=== PATIENT | female | born 1995 | race Caucasian/White ===

== ENCOUNTER 2020-11-10 11:00 | Outpatient (CLI) | payer OTHER ==
[2020-11-11 10:46] LABS: CREATININE,URINE 138.3 mg/dL; PROTEIN/CREATININE RATIO,URINE 0.1 (<=0.2)
== END 2020-11-10 23:59 | disposition home or self-care (01) ==
LOC: LAB.R 11:00
PROVIDERS: ATTEND Obstetrics & Gynecology
DX: O09.90 Supervision of high risk pregnancy, unspecified, unspecified trimester (principal)
CPT/HCPCS: 82570; 84156

== ENCOUNTER 2020-11-18 16:00 | Outpatient (CLI) | payer OTHER ==
[2020-11-19 13:09] LABS: BILIRUBIN,URINE NEGATIVE (NEGATIVE); GLUCOSE, URINE (UA) NEGATIVE (NEGATIVE); KETONES,URINE (UA) NEGATIVE (NEGATIVE); LEUKOCYTE ESTERASE, URINE NEGATIVE (NEGATIVE); NITRITE,URINE NEGATIVE (NEGATIVE); OCCULT BLOOD,URINE NEGATIVE (NEGATIVE); PROTEIN,URINE NEGATIVE (NEGATIVE); UROBILINOGEN,URINE 0.2 (NORMAL) E.U./dL (NORMAL)
[2020-11-19 13:20] LABS: CLARITY,URINE CLOUDY (CLEAR)
[2020-11-19 13:21] LABS: AMORPHOUS SEDIMENT,UR Moderate /LPF; BACTERIA,URINE Moderate /HPF (None Seen); RBC,URINE None Seen /HPF (0-5); SQUAMOUS EPITHELIAL CELL,UR FEW Squamous (<= Few)
== END 2020-11-18 23:59 | disposition home or self-care (01) ==
LOC: LAB.R 16:00
PROVIDERS: ATTEND Nurse Practitioner Obstetrics & Gynecology
DX: R30.0 Dysuria (principal)
CPT/HCPCS: 81001; 87086

== ENCOUNTER 2020-12-20 17:53 | Outpatient (CLI) | payer OTHER ==
--- NOTE | 2020-12-21 08:38 | Ultrasound Report ---
PROCEDURE: OB F/U or Repeat INDICATIONS: SUPERVISION OF HIGH RISK OUTSIDE/PRIOR DATING DATA: First dating scan (date and location): 12/20/2020. Estimated date of delivery (LOAN) from first dating scan: 02/19/2021. TECHNIQUE: Real-time scanning was performed of the fetus, with image documentation and biometric measurements. Endovaginal scanning: Was not performed COMPARISON: None. FINDINGS: General: A single living intrauterine gestation is present. Presentation: Cephalic Placenta: Placental position is posterior, without previa. Amniotic fluid index: 11.9 cm, normal for gestational age. heart rate: 152 beats per minute. Maternal cervical canal: Cervix was not well visualized. biometrics: Biparietal diameter: 8.1 cm Head circumference: 28.9 cm Abdominal circumference: 25.8 cm Femur length: 6.0 cm Estimated gestational age from initial scan: not applicable. Composite gestational age from present scan: 31 weeks 2 days Estimated weight and percentile: 1618 g, 45th percentile Measurement variability in biometric dating: +/- 10 days from 12-20 weeks gestation, +/- 2 weeks from 20-30 weeks gestation, +/- 3 weeks at 30 weeks gestation or more. Other: Not applicable. IMPRESSION: Single live intrauterine gestation with average ultrasound age of 31 weeks 2 days. PENNY and weight are within normal limits. Reviewed by: Charles Mao MD on 12/21/2020 8:37 AM PST Approved by: Charles Mao MD on 12/21/2020 8:37 AM PST Station ID: [id number]
== END 2020-12-20 17:54 | disposition home or self-care (01) ==
LOC: DI 17:53
PROVIDERS: ATTEND Obstetrics & Gynecology
DX: O35.8XX1 Maternal care for other (suspected) fetal abnormality and damage, fetus 1 (principal); O09.93 Supervision of high risk pregnancy, unspecified, third trimester; Z3A.31 31 weeks gestation of pregnancy

== ENCOUNTER 2020-12-24 11:00 | Outpatient (CLI) | payer SELFPAY ==
[2020-12-24 16:55] LABS: CREATININE,URINE 197.7 mg/dL; PROTEIN/CREATININE RATIO,URINE 0.1 (<=0.2)
== END 2020-12-24 23:59 | disposition home or self-care (01) ==
LOC: LAB.R 11:00
PROVIDERS: ATTEND Obstetrics & Gynecology
DX: O09.90 Supervision of high risk pregnancy, unspecified, unspecified trimester (principal); O16.9 Unspecified maternal hypertension, unspecified trimester
CPT/HCPCS: 82570; 84156

== ENCOUNTER 2020-12-24 11:34 | Outpatient (CLI) | payer SELFPAY ==
[2020-12-24 12:05] LABS: HGB - HEMOGLOBIN 12.9 g/dL (12.0-16.0); MEAN CORPUSCULAR HEMOGLOBIN 30.6 pg (27.0-31.0); MEAN CORPUSCULAR HGB CONC 34.8 g/dL (32.0-36.0); MEAN CORPUSCULAR VOLUME 88.1 fL (81.0-99.0); MEAN PLATELET VOLUME 10.8 fL (7.9-10.8); RED BLOOD COUNT 4.21 10^6/uL (4.20-5.40); RED CELL DISTRIBUTION WIDTH 14.2 % (12.0-15.0); WHITE BLOOD COUNT 10.1 x10^3/uL (4.8-10.8)
[2020-12-24 12:18] LABS: ALBUMIN 3.3 g/dL (3.2-5.5); ALBUMIN/GLOBULIN RATIO 0.9 (1.0-2.2); ALKALINE PHOSPHATASE 83 IU/L (42-121); ALT ALANINE AMINOTRANSFERASE < 10 IU/L (10-60); AST ASPARTATE AMINOTRANSFERASE 11 IU/L (10-42); BILIRUBIN,TOTAL 0.5 mg/dL (0.2-1.0); BUN - BLOOD UREA NITROGEN 7 mg/dL (6-20); CARBON DIOXIDE - CO2 21 mmol/L (21-32); CHLORIDE 102 mmol/L (101-111); CREATININE 0.6 mg/dL (0.4-1.0); GLUCOSE 99 mg/dL (70-100); TOTAL PROTEIN 6.8 g/dL (6.7-8.2)
== END 2020-12-24 11:35 | disposition home or self-care (01) ==
LOC: LAB 11:34
PROVIDERS: ATTEND Obstetrics & Gynecology
DX: O16.9 Unspecified maternal hypertension, unspecified trimester (principal); O09.90 Supervision of high risk pregnancy, unspecified, unspecified trimester
CPT/HCPCS: 36415; 80053; 85027

== ENCOUNTER 2020-12-29 08:02 | Outpatient (CLI) | payer SELFPAY ==
[2020-12-29 08:32] LABS: GTT GLUCOSE,FASTING 93 mg/dL (70-100)
== END 2020-12-29 08:03 | disposition home or self-care (01) ==
LOC: LAB 08:02
PROVIDERS: ATTEND Obstetrics & Gynecology
DX: O99.810 Abnormal glucose complicating pregnancy (principal)
CPT/HCPCS: 36415; 82951; 82952

== ENCOUNTER 2021-01-04 07:49 | Outpatient (CLI) | payer OTHER ==
[2021-01-04 08:18] VITALS: BP 138/84
--- NOTE | 2021-01-04 16:54 | PROCEDURE REPORT ---
- HPI Diagnosis/Indication for NST: Other (Chronic hypertension) Current EDU 02/25/21 Gestation 32 Weeks and 4 Days 2 Para 0 Vital Signs Temperature 99.3 F 01/04/21 08:15 Heart Rate 104 H 01/04/21 08:15 Respiratory Rate 16 01/04/21 08:15 Blood Pressure 138/84 H 01/04/21 08:15 O2 Saturation 100 01/04/21 08:15 Temperature 99.3 F 01/04/21 08:15 Heart Rate 104 H 01/04/21 08:15 Respiratory Rate 16 01/04/21 08:15 Blood Pressure 138/84 H 01/04/21 08:15 O2 Saturation 100 01/04/21 08:15 - NST Procedure NST Procedure Start Date 01/04/21 Start Time 08:12 Stop Time 08:45 Vibroacoustic Stimulation Used No Patient States Movement Yes - Results and Plan Findings/Impression: Baseline: BPM 150 Variability: Moderate Accelerations: Present Decelerations: Absent Trends in FHR over time: no changes [place] contractions in 10 minutes: 0 Impression: reactive Category 1 NST
== END 2021-01-04 08:50 | disposition home or self-care (01) ==
LOC: WFO 07:49 → FBP 08:02 → WFO 08:50
PROVIDERS: ATTEND Obstetrics & Gynecology
DX: O10.913 Unspecified pre-existing hypertension complicating pregnancy, third trimester (principal); Z3A.32 32 weeks gestation of pregnancy
CPT/HCPCS: 59025

== ENCOUNTER 2021-01-08 18:39 | Outpatient (CLI) | payer OTHER ==
[2021-01-08 18:54] VITALS: BP 131/78
--- NOTE | 2021-01-09 12:09 | PROCEDURE REPORT ---
- HPI Diagnosis/Indication for NST: Pre- Hypertension Current EDU 02/25/21 Gestation 33 Weeks and 1 Days 2 Para 0 Vital Signs Temperature 98.4 F 01/08/21 18:51 Heart Rate 103 H 01/08/21 18:51 Respiratory Rate 17 01/08/21 18:51 Blood Pressure 131/78 H 01/08/21 18:51 O2 Saturation 100 01/08/21 18:51 Temperature 98.4 F 01/08/21 18:51 Heart Rate 103 H 01/08/21 18:51 Respiratory Rate 17 01/08/21 18:51 Blood Pressure 131/78 H 01/08/21 18:51 O2 Saturation 100 01/08/21 18:51 - NST Procedure NST Procedure Start Date 01/08/21 Start Time 18:49 Stop Time 19:20 Vibroacoustic Stimulation Used No Patient States Movement Yes - Results and Plan Findings/Impression: Baseline: BPM 135 Variability: Moderate Accelerations: Present Decelerations: Absent Trends in FHR over time: no changes [place] contractions in 10 minutes: Impression: reactive Category 1 NST
== END 2021-01-08 19:25 | disposition home or self-care (01) ==
LOC: WFO 18:39 → FBP 18:40 → WFO 19:25
PROVIDERS: ATTEND Obstetrics & Gynecology
DX: O09.90 Supervision of high risk pregnancy, unspecified, unspecified trimester (principal); O10.913 Unspecified pre-existing hypertension complicating pregnancy, third trimester; Z3A.33 33 weeks gestation of pregnancy
CPT/HCPCS: 59025

== ENCOUNTER 2021-01-08 19:42 | Outpatient (CLI) | payer OTHER ==
--- NOTE | 2021-01-08 22:12 | Ultrasound Report ---
PROCEDURE: OB Limited INDICATIONS: HIGH RISK PREG, HTN, WEEKLY PENNY OUTSIDE/PRIOR DATING DATA: Last menstrual period (LMP): 05/21/2020 according to prior ultrasound [place] LMP-based estimated date of delivery (LOAN): 02/25/2021. First dating scan (date and location): 12/20/2020. Estimated date of delivery (LOAN) from first dating scan: 02/25/2021. LOAN given by provider is TECHNIQUE: Real-time scanning was performed of the fetus, with image documentation. COMPARISON: OB ultrasound 12/20/2020, 10/15/2020, 10/12/2020 FINDINGS: A single living intrauterine gestation is present. Presentation: Vertex Placenta: Placental position is posterior, without previa. Amniotic fluid index: 8.4 cm, 5th percentile for gestational age. Largest pocket 3.25 cm. This is co mpared to a PENNY of 11.9 cm and largest pocket of 4.2 cm on 12/20/2020 heart rate: 147 beats per minutes. Maternal cervical canal: Not well seen Estimated gestational age from initial scan: 33 weeks 1 day. IMPRESSION: 1. Single live intrauterine . It is noted that LOAN has been changed to 02/25/2021 as noted by the ordering provider. 2. PENNY is now measured at the 5th percentile, measuring 8.4 cm compared to 11.9 cm on prior exam. Reviewed by: Vicky Culver MD on 01/08/2021 10:11 PM PST Approved by: Vicky Culver MD on 01/08/2021 10:11 PM PST Station ID: [id number]
== END 2021-01-08 19:43 | disposition home or self-care (01) ==
LOC: DI 19:42
PROVIDERS: ATTEND Obstetrics & Gynecology
DX: O09.90 Supervision of high risk pregnancy, unspecified, unspecified trimester (principal); O16.9 Unspecified maternal hypertension, unspecified trimester

== ENCOUNTER 2021-01-11 09:48 | Outpatient (CLI) | payer OTHER ==
[2021-01-11 10:00] VITALS: BP 139/83
--- NOTE | 2021-01-11 18:29 | PROCEDURE REPORT ---
- HPI Diagnosis/Indication for NST: Pre- Hypertension Current EDU 02/25/21 Gestation 33 Weeks and 4 Days 2 Para 0 Vital Signs Temperature 98.2 F 01/11/21 09:59 Heart Rate 103 H 01/11/21 09:59 Respiratory Rate 18 01/11/21 09:59 Blood Pressure 139/83 H 01/11/21 09:59 O2 Saturation 100 01/11/21 09:59 Temperature 98.2 F 01/11/21 09:59 Heart Rate 103 H 01/11/21 09:59 Respiratory Rate 18 01/11/21 09:59 Blood Pressure 139/83 H 01/11/21 09:59 O2 Saturation 100 01/11/21 09:59 - NST Procedure NST Procedure Start Date 01/11/21 Start Time 09:54 Stop Time 10:14 Vibroacoustic Stimulation Used No Patient States Movement Yes - Results and Plan Findings/Impression: Baseline: BPM 140 Variability: Moderate Accelerations: Present Decelerations: Absent Trends in FHR over time: no changes [place] contractions in 10 minutes: Impression: reactive Category 1 NST
== END 2021-01-11 10:20 | disposition home or self-care (01) ==
LOC: WFO 09:48 → FBP 09:50 → WFO 10:20
PROVIDERS: ATTEND Obstetrics & Gynecology
DX: O10.913 Unspecified pre-existing hypertension complicating pregnancy, third trimester (principal); Z3A.33 33 weeks gestation of pregnancy
CPT/HCPCS: 59025

== ENCOUNTER 2021-01-14 09:47 | Outpatient (CLI) | payer OTHER ==
[2021-01-14 09:56] VITALS: BP 132/90
--- NOTE | 2021-01-15 21:23 | PROCEDURE REPORT ---
- HPI Diagnosis/Indication for NST: Pre- Hypertension Current EDU 02/25/21 Gestation 34 Weeks and 0 Days 2 Para 0 Vital Signs Temperature 98.2 F 01/14/21 09:54 Heart Rate 124 H 01/14/21 09:54 Respiratory Rate 20 01/14/21 09:54 Blood Pressure 132/90 H 01/14/21 09:54 O2 Saturation 99 01/14/21 09:54 Temperature 98.2 F 01/14/21 09:54 Heart Rate 124 H 01/14/21 09:54 Respiratory Rate 20 01/14/21 09:54 Blood Pressure 132/90 H 01/14/21 09:54 O2 Saturation 99 01/14/21 09:54 - NST Procedure NST Procedure Start Date 01/14/21 Start Time 09:51 Stop Time 10:20 Vibroacoustic Stimulation Used No Patient States Movement Yes EFM 145 mod mode 15x15 accels no decels TOCO: quiet - Results and Plan Findings/Impression: 25 yo at 34+0 wga with pregnanct affected by CHTN here for NST Cat I tracing Cont with twice weekly NST and weekly PENNY
== END 2021-01-14 10:30 | disposition home or self-care (01) ==
LOC: WFO 09:47 → FBP 09:49 → WFO 10:30
PROVIDERS: ATTEND Obstetrics & Gynecology
DX: O09.90 Supervision of high risk pregnancy, unspecified, unspecified trimester (principal); O10.913 Unspecified pre-existing hypertension complicating pregnancy, third trimester; Z3A.34 34 weeks gestation of pregnancy
CPT/HCPCS: 59025

== ENCOUNTER 2021-01-14 11:49 | Outpatient (CLI) | payer OTHER ==
--- NOTE | 2021-01-14 13:09 | Ultrasound Report ---
PROCEDURE: OB Limited INDICATIONS: HIGH RISK , HTN OUTSIDE/PRIOR DATING DATA: Last menstrual period (LMP): 05/21/2020 based on radiology report of 10/12/2020 from [place] LMP-based estimated date of delivery (LOAN): 02/25/2021. First dating scan (date and location): 10/12/2020 [facility]. Estimated date of delivery (LOAN) from first dating scan: 02/25/2021. It is noted that the ordering pro vider has established the LOAN to be 02/25/2021.. TECHNIQUE: Real-time scanning was performed of the fetus, with image documentation. COMPARISON: OB ultrasound 10/12/2020, 12/20/2020, 01/08/2021 FINDINGS: A single living intrauterine gestation is present. Presentation: Vertex Placenta: Placental position is posterior, without previa. Amniotic fluid index: 9.6 cm, 11th percentile for gestational age. Largest pocket 3.4 cm. heart rate: 141 beats per minutes. Maternal cervical canal: 3.6 cm long; normal length is 2.5 cm or more. IMPRESSION: 1. PENNY measures 9.6 cm, corresponding to the 11th percentile. Gestational age is measured at 34 weeks 0 days. Reviewed by: Vicky Culver MD on 01/14/2021 1:08 PM PDT Approved by: Vicky Culver MD on 01/14/2021 1:08 PM PDT Station ID: [id number]
== END 2021-01-14 11:50 | disposition home or self-care (01) ==
LOC: DI 11:49
PROVIDERS: ATTEND Obstetrics & Gynecology
DX: O09.90 Supervision of high risk pregnancy, unspecified, unspecified trimester (principal); O16.9 Unspecified maternal hypertension, unspecified trimester; Z3A.34 34 weeks gestation of pregnancy

== ENCOUNTER 2021-01-19 11:23 | Outpatient (CLI) | payer OTHER ==
[2021-01-19 12:05] VITALS: BP 125/79
--- NOTE | 2021-01-19 17:27 | PROCEDURE REPORT ---
- HPI Diagnosis/Indication for NST: Pre- Hypertension Current EDU 02/25/21 Gestation 34 Weeks and 5 Days 2 Para 0 Vital Signs Temperature 99.0 F 01/19/21 11:35 Heart Rate 110 H 01/19/21 11:35 Respiratory Rate 18 01/19/21 11:35 Blood Pressure 141/87 H 01/19/21 11:35 Temperature 99.0 F 01/19/21 11:35 Heart Rate 110 H 01/19/21 11:35 Respiratory Rate 18 01/19/21 11:35 Blood Pressure 125/79 01/19/21 11:45 O2 Saturation - NST Procedure NST Procedure Start Date 01/19/21 Start Time 11:35 Stop Time 12:07 Vibroacoustic Stimulation Used No Patient States Movement Yes EFM 140 mod mode 15x15 accels no decels TOCO: quiet - Results and Plan Findings/Impression: 25 yo at 34+5 wga with affected by CHTN here for NST Cat I tracing Cont with twice weekly NST and weekly PENNY
== END 2021-01-19 12:20 | disposition home or self-care (01) ==
LOC: WFO 11:23 → FBP 11:28 → WFO 12:20
PROVIDERS: ATTEND Obstetrics & Gynecology
DX: O10.913 Unspecified pre-existing hypertension complicating pregnancy, third trimester (principal); Z3A.34 34 weeks gestation of pregnancy
CPT/HCPCS: 59025

== ENCOUNTER 2021-01-22 08:49 | Outpatient (CLI) | payer OTHER ==
--- NOTE | 2021-01-22 17:12 | Ultrasound Report ---
PROCEDURE: OB Limited INDICATIONS: HIGH RISK , HTN OUTSIDE/PRIOR DATING DATA: Last menstrual period (LMP): 05/21/2020 based on radiology report of 10/12/2020 from [place]. LMP-based estimated date of delivery (LOAN): 02/25/2021 First dating scan (date and location): 10/12/2020 [place] Estimated date of delivery (LOAN) from first dating scan: 02/19/2021. It is noted that current exam ul rasound generated data is based on ultrasound LOAN of 02/25/2021 as assigned by ordering provider.. TECHNIQUE: Real-time scanning was performed of the fetus, with image documentation. COMPARISON: OB ultrasound 01/14/2021, 01/08/2021 FINDINGS: A single living intrauterine gestation is present. Presentation: Prior to Placenta: Placental position is posterior fundal, without previa. Amniotic fluid index: 7.4 cm, 3.8% for gestational age. Largest pocket 3.4 cm heart rate: 153 beats per minutes. Maternal cervical canal: 3.6 cm long; normal length is 2.5 cm or more. Estimated gestational age from provider assigned LOAN of 02/25/2021: 35 weeks 1 day. IMPRESSION: 1. Single live intrauterine . 2. PENNY measures 7.4 cm corresponding to 3.8 percentile. This has decreased compared to prior exam. Ho wever, it is noted that largest pocket remains unchanged in size measuring 3.4 cm. Reviewed by: Vicky Culver MD on 01/22/2021 5:11 PM PDT Approved by: Vicky Culver MD on 01/22/2021 5:11 PM PDT Station ID: [id number]
== END 2021-01-22 08:50 | disposition home or self-care (01) ==
LOC: DI 08:49
PROVIDERS: ATTEND Obstetrics & Gynecology
DX: O09.90 Supervision of high risk pregnancy, unspecified, unspecified trimester (principal); O16.3 Unspecified maternal hypertension, third trimester; Z3A.35 35 weeks gestation of pregnancy

== ENCOUNTER 2021-01-22 09:25 | Outpatient (CLI) | payer OTHER ==
[2021-01-22 09:42] VITALS: BP 126/75
--- NOTE | 2021-01-27 12:09 | PROCEDURE REPORT ---
- HPI Diagnosis/Indication for NST: Pre- Hypertension Current EDU 02/25/21 Gestation 35 Weeks and 1 Days 2 Para 0 Vital Signs Temperature 37.1 C 01/22/21 09:40 Heart Rate 99 01/22/21 09:40 Respiratory Rate 16 01/22/21 09:40 Blood Pressure 126/75 01/22/21 09:40 O2 Saturation 100 01/22/21 09:40 Temperature 37.1 C 01/22/21 09:40 Heart Rate 99 01/22/21 09:40 Respiratory Rate 16 01/22/21 09:40 Blood Pressure 126/75 01/22/21 09:40 O2 Saturation 100 01/22/21 09:40 - NST Procedure NST Procedure Start Date 01/22/21 Start Time 09:34 Stop Time 10:00 Vibroacoustic Stimulation Used No Patient States Movement Yes - Results and Plan Findings/Impression: reactive NST BPP 8/8 PENNY 3+ MAX POCKET Plan: CONTINUE nst WITH BPP
--- NOTE | 2021-01-27 12:38 | PREOP HISTORY & PHYSICAL ---
DATE OF SERVICE: 01/22/2021 Physician: Tigre Edwards MD IDENTIFICATION: Patient is a 25-year-old. She is 2, para 0, AB1. She is currently 35 weeks EGA. CHIEF COMPLAINT: Chronic hypertension. HISTORY OF PRESENT ILLNESS: Patient noted to have chronic hypertension at her early visits and, for this reason, she is being followed with twice weekly NSTs, as well as AFIs. Over the weekend, she had difficulty with some AFIs, which were in the 3-4 range, so she presents today for repeat NST, as well as PENNY. Her NST is reactive, however, and her PENNY was noted to be 5.1. She notes good motion at this time. PAST MEDICAL HISTORY: Positive for hypertension, as well as abnormal Pap smear. PAST SURGICAL HISTORY: [place] teeth. ALLERGIES: None known. CURRENT MEDICATIONS: Low-dose aspirin, as well as vitamins. FAMILY HISTORY: Positive for hypertension. SOCIAL HISTORY: The patient is to active [employer]. PHYSICAL EXAM GENERAL: Well-developed, well-nourished, white female, in no acute distress at this time,. HEENT: Pupils equal, round. Extraocular muscles are intact. Thyroid was not palpably enlarged. HEART: Regular rate and rhythm without murmurs. LUNGS: Lung eaton are clear without rales or wheezes. ABDOMEN: Gravid, nontender. Roughly 35 cm. She was noted to have initial blood pressures in 140s/90s; however, blood pressure did go up to 160/90s. This appeared to regress slightly to 150/90s. She had an NST, which was reactive. She had an PENNY, which was roughly 5.2. Her PIH labs did not show evidence of any proteinuria. IMPRESSION: A 25-year-old nulliparous woman at 35 weeks 5 days with chronic hypertension. PLAN: We will start her on labetalol 100 mg p.o. b.i.d., administer betamethasone 12 mg IM. Patient will also continue with her outpatient NSTs. TD: 01/27/2021 11:55 jaymie GARCIA
== END 2021-01-22 10:15 | disposition home or self-care (01) ==
LOC: WFO 09:25 → FBP 09:26 → WFO 10:15
PROVIDERS: ATTEND Obstetrics & Gynecology
DX: O10.913 Unspecified pre-existing hypertension complicating pregnancy, third trimester (principal); Z3A.35 35 weeks gestation of pregnancy; Z79.82 Long term (current) use of aspirin; Z82.49 Family history of ischemic heart disease and other diseases of the circulatory system
CPT/HCPCS: 59025

== ENCOUNTER 2021-01-23 08:53 | Outpatient (CLI) | payer OTHER ==
[2021-01-23 09:09] VITALS: BP 128/79
--- NOTE | 2021-01-23 10:19 | PROCEDURE REPORT ---
- HPI Diagnosis/Indication for NST: Gestational Hypertension Current EDU 02/25/21 Gestation 35 Weeks and 2 Days 2 Para 0 Vital Signs Temperature 36.5 C 01/23/21 09:06 Heart Rate 108 H 01/23/21 09:06 Respiratory Rate 16 01/23/21 09:06 Blood Pressure 128/79 01/23/21 09:06 O2 Saturation 98 01/23/21 09:06 Temperature 36.5 C 01/23/21 09:06 Heart Rate 108 H 01/23/21 09:06 Respiratory Rate 16 01/23/21 09:06 Blood Pressure 128/79 01/23/21 09:06 O2 Saturation 98 01/23/21 09:06 - NST Procedure NST Procedure Start Date 01/23/21 Start Time 09:10 Stop Time 09:30 Vibroacoustic Stimulation Used No Patient States Movement Yes - Results and Plan Findings/Impression: reactive NST. yesterday pt had a BPP with PENNY of 7. Repeat PENNY today is 16. Plan: continue antinatal testing.
== END 2021-01-23 09:50 | disposition home or self-care (01) ==
LOC: WFO 08:53 → FBP 08:56 → WFO 09:50
PROVIDERS: ATTEND Obstetrics & Gynecology
DX: O10.913 Unspecified pre-existing hypertension complicating pregnancy, third trimester (principal); Z3A.35 35 weeks gestation of pregnancy
CPT/HCPCS: 59025

== ENCOUNTER 2021-01-25 07:24 | Outpatient (CLI) | payer OTHER ==
[2021-01-25 07:40] VITALS: BP 132/80
[2021-01-25] MEDS ORDERED: LACTATED RINGERS 1,000 ML IV ONE (07:59)
--- NOTE | 2021-01-27 16:26 | PROCEDURE REPORT ---
- HPI Diagnosis/Indication for NST: Pre- Hypertension Current EDU 02/25/21 Gestation 35 Weeks and 4 Days 2 Para 0 Vital Signs Temperature 98.6 F 01/25/21 07:37 Heart Rate 111 H 01/25/21 07:37 Respiratory Rate 18 01/25/21 07:37 Blood Pressure 132/80 H 01/25/21 07:37 O2 Saturation 99 01/25/21 07:37 Temperature 98.6 F 01/25/21 07:37 Heart Rate 111 H 01/25/21 07:37 Respiratory Rate 18 01/25/21 07:37 Blood Pressure 132/80 H 01/25/21 07:37 O2 Saturation 99 01/25/21 07:37 - NST Procedure NST Procedure Start Date 01/25/21 Start Time 07:35 Stop Time 08:30 Vibroacoustic Stimulation Used Yes Patient States Movement Yes EFM 140 mod vr 15x15 accels no decels TOCO: quiet - Results and Plan Findings/Impression: Patient is a 25 yo at 34+5 with CHTN in Cat I tracing PENNY borderline at 5.6 and MVP 4.2 Gave 1L fluid bolus with plan to repeat PENNY and NST tomorrow
== END 2021-01-25 09:35 | disposition home or self-care (01) ==
LOC: WFO 07:24 → FBP 07:26 → WFO 09:35
PROVIDERS: ATTEND Obstetrics & Gynecology
DX: O10.913 Unspecified pre-existing hypertension complicating pregnancy, third trimester (principal); O41.03X0 Oligohydramnios, third trimester, not applicable or unspecified; Z3A.35 35 weeks gestation of pregnancy
CPT/HCPCS: 59025; 76815; 96360; J7120

== ENCOUNTER 2021-01-26 09:46 | Outpatient (CLI) | payer OTHER ==
--- NOTE | 2021-01-26 17:20 | Ultrasound Report ---
PROCEDURE: OB Limited INDICATIONS: SUPERVISION HIGH RISK , OLIGOHYDRAMNIOS OUTSIDE/PRIOR DATING DATA: Last menstrual period (LMP): Unknown. LMP-based estimated date of delivery (LOAN): Unknown. First dating scan (date and location): 12/20/2020. Estimated date of delivery (LOAN) from first dating scan: 02/19/2021. (02/25/2021 per Provider). TECHNIQUE: Real-time scanning was performed of the fetus, with image documentation. COMPARISON: OB ultrasound 01/25/2021. FINDINGS: A single living intrauterine gestation is present. Presentation: Vertex Placenta: Placental position is posterior fundal, without previa. Amniotic fluid index: 5.4 cm, 1.1 percentile. Largest pocket 2.6 cm. heart rate: 158 beats per minutes. Maternal cervical canal: Not well seen. Estimated gestational age from initial scan: 35 weeks 5 days. IMPRESSION: 1. [place] living intrauterine at 35 weeks 5 days based on prior dating. 2. Normal placenta. Oligohydramnios. PENNY 5.4 cm. Largest pocket 2.6 cm. Reviewed by: Yosi Veronica MD on 01/26/2021 5:19 PM PDT Approved by: Yosi Veronica MD on 01/26/2021 5:19 PM PDT Station ID: [id number]
== END 2021-01-26 09:47 | disposition home or self-care (01) ==
LOC: DI 09:46
PROVIDERS: ATTEND Obstetrics & Gynecology
DX: O09.93 Supervision of high risk pregnancy, unspecified, third trimester (principal); O41.03X0 Oligohydramnios, third trimester, not applicable or unspecified

== ENCOUNTER 2021-01-26 10:44 | Outpatient (CLI) | payer OTHER ==
[2021-01-26 12:59] LABS: BASOPHILS % (AUTO) 0.2 %; EOSINOPHILS % (AUTO) 0.4 %; HCT - HEMATOCRIT 37.5 % (37.0-47.0); HGB - HEMOGLOBIN 12.7 g/dL (12.0-16.0); LYMPHOCYTES # (AUTO) 1.8 10^3/uL (1.5-3.5); LYMPHOCYTES % (AUTO) 18.3 %; MEAN CORPUSCULAR HGB CONC 33.9 g/dL (32.0-36.0); MEAN CORPUSCULAR VOLUME 88.4 fL (81.0-99.0); MEAN PLATELET VOLUME 11.5 fL (7.9-10.8); MONOCYTES # (AUTO) 0.6 10^3/uL (0.0-1.0); MONOCYTES % (AUTO) 6.7 %; NEUTROPHILS % (AUTO) 73.6 %; PLT - PLATELET COUNT 213 10^3/uL (130-450); RED BLOOD COUNT 4.24 10^6/uL (4.20-5.40); RED CELL DISTRIBUTION WIDTH 14.8 % (12.0-15.0); WHITE BLOOD COUNT 9.6 x10^3/uL (4.8-10.8)
[2021-01-26 13:11] LABS: ALT ALANINE AMINOTRANSFERASE < 10 IU/L (10-60); AST ASPARTATE AMINOTRANSFERASE 12 IU/L (10-42); CREATININE 0.5 mg/dL (0.4-1.0); GFR - MDRD 152 (>89)
[2021-01-26 13:23] LABS: CREATININE,URINE 224.7 mg/dL; PROTEIN/CREATININE RATIO,URINE 0.1 (<=0.2)
[2021-01-26 13:51] VITALS: BP 157/93
[2021-01-26] MEDS ORDERED: BETAMETHASONE 30 MG/5 ML VIAL IM ONE (14:37)
[2021-01-26] MEDS ORDERED: LABETALOL 100 MG TABLET PO SCH (14:38)
--- NOTE | 2021-01-27 15:59 | PROCEDURE REPORT ---
- HPI Diagnosis/Indication for NST: Gestational Hypertension Current EDU 02/25/21 Gestation 35 Weeks and 5 Days 2 Para 0 Vital Signs Heart Rate 115 H 01/26/21 10:54 Respiratory Rate 18 01/26/21 10:54 Blood Pressure 145/91 H 01/26/21 10:54 O2 Saturation 99 01/26/21 10:54 Temperature 98.6 F 01/26/21 11:02 Heart Rate 115 H 01/26/21 11:02 Respiratory Rate 18 01/26/21 11:02 Blood Pressure 157/93 H 01/26/21 13:35 O2 Saturation 100 01/26/21 11:02 - NST Procedure NST Procedure Start Date 01/26/21 Start Time 10:54 Stop Time 11:35 Vibroacoustic Stimulation Used No Patient States Movement Yes EFM 145 mod mode 15x15 accels no decels TOCO: quiet - Results and Plan Findings/Impression: 25 yo at 35+5 wga with complicated by CHTN and borderline oligohydramnios Cat I tracing Cont with twice weekly NST and twice weekly PENNY If PENNY<5, admit for IOL If PENNY remain borderline or higher and BPs remain in mild range, will plan on IOL at 37 weeks Discussed with patient and Dr. Edwards to manage in my absence.
== END 2021-01-26 15:20 | disposition home or self-care (01) ==
LOC: WFO 10:44 → FBP 10:46 → WFO 15:20
PROVIDERS: ATTEND Obstetrics & Gynecology
DX: O10.913 Unspecified pre-existing hypertension complicating pregnancy, third trimester (principal); O41.03X0 Oligohydramnios, third trimester, not applicable or unspecified; Z3A.35 35 weeks gestation of pregnancy
CPT/HCPCS: 36415; 59025; 76815; 82565; 82570; 84156; 84450; 84460; 84550; 85025; 96372; 99213; A9270

== ENCOUNTER 2021-01-28 08:50 | Outpatient (CLI) | payer OTHER ==
--- NOTE | 2021-01-28 15:44 | Ultrasound Report ---
PROCEDURE: OB Limited INDICATIONS: HIGH RISK , HTN OUTSIDE/PRIOR DATING DATA: Last menstrual period (LMP): Unknown. First dating scan (date and location): 12/20/20. Estimated date of delivery (LOAN) from first dating scan: 02/19/21 (02/25/21 as per provider). TECHNIQUE: Real-time scanning was performed of the fetus, with image documentation. COMPARISON: 01/26/2021, 01/25/2021, 01/22/2021. FINDINGS: A single living intrauterine gestation is present. Presentation: Vertex Placenta: Placental position is posterior fundal, without previa. Amniotic fluid index: 5.4 cm, 1st percentile for gestational age. Largest pocket measures 2.6 cm. heart rate: 158 beats per minutes. Maternal cervical canal: Not well seen. Estimated gestational age from initial scan: 35 weeks 5 days. IMPRESSION: 1. Single living intrauterine redemonstrated in vertex position. 2. Oligohydramnios redemonstrated with progressive decreased PENNY percentile compared to prior studies . Reviewed by: Freddy Sherwood MD on 01/28/2021 3:42 PM PDT Approved by: Freddy Sherwood MD on 01/28/2021 3:42 PM PDT Station ID: [id number]
== END 2021-01-28 08:51 | disposition home or self-care (01) ==
LOC: DI 08:50
PROVIDERS: ATTEND Obstetrics & Gynecology
DX: O09.93 Supervision of high risk pregnancy, unspecified, third trimester (principal); O16.3 Unspecified maternal hypertension, third trimester; O41.03X0 Oligohydramnios, third trimester, not applicable or unspecified; Z3A.35 35 weeks gestation of pregnancy; Z20.822 Contact with and (suspected) exposure to COVID-19

== ENCOUNTER 2021-01-28 09:56 | Observation (INO) | payer OTHER ==
[2021-01-28] MEDS ORDERED: fentaNYL 100 MCG/2 ML VIAL IVP PRN (11:45)
[2021-01-28] MEDS ORDERED: TRANEXAMIC ACID IN NACL 1,000 MG/100 ML BAG IV PRN (11:45)
[2021-01-28] MEDS ORDERED: ONDANSETRON 4 MG/2 ML VIAL IVP PRN (11:45)
[2021-01-28] MEDS ORDERED: LIDOCAINE-MPF 1% 30 ML VIAL ID PRN (11:45)
[2021-01-28] MEDS ORDERED: METHYLERGONOVINE 0.2 MG/ML VIAL IM PRN (11:45)
[2021-01-28] MEDS ORDERED: CARBOPROST TROMETHAMINE 250 MCG/ML AMP IM PRN (11:45)
[2021-01-28] MEDS ORDERED: OXYTOCIN 10 UNIT/ML VIAL IM PRN (11:45)
[2021-01-28] MEDS ORDERED: ACETAMINOPHEN 325 MG TABLET PO PRN (11:45)
[2021-01-28] MEDS ORDERED: OXYTOCIN/SODIUM CHLORIDE 500 ML IV PRN ×2 (11:45)
[2021-01-28] MEDS ORDERED: miSOPROStoL 200 MCG TABLET BC PRN (11:45)
[2021-01-28] MEDS ORDERED: SODIUM CHLORIDE FLUSH 0.9% 10 ML SYRINGE IVP PRN (11:45)
[2021-01-28] MEDS ORDERED: miSOPROStoL 200 MCG TABLET PR ONE (11:45)
[2021-01-28] MEDS ORDERED: LACTATED RINGERS 1,000 ML IV SCH (12:00)
[2021-01-28] MEDS ORDERED: miSOPROStoL 100 MCG TABLET VG SCH (13:00)
[2021-01-28] MEDS ORDERED: miSOPROStoL 100 MCG TABLET BC SCH (13:14)
[2021-01-28] MEDS: LABETALOL 100 MG TABLET PO SCH (14:41)
[2021-01-28 14:48] LABS: BASOPHILS % (AUTO) 0.1 %; EOSINOPHILS % (AUTO) 0.2 %; HCT - HEMATOCRIT 34.9 % (37.0-47.0); HGB - HEMOGLOBIN 11.9 g/dL (12.0-16.0); LYMPHOCYTES # (AUTO) 2.2 10^3/uL (1.5-3.5); LYMPHOCYTES % (AUTO) 21.7 %; MEAN CORPUSCULAR HEMOGLOBIN 30.1 pg (27.0-31.0); MEAN CORPUSCULAR HGB CONC 34.1 g/dL (32.0-36.0); MEAN CORPUSCULAR VOLUME 88.1 fL (81.0-99.0); MEAN PLATELET VOLUME 11.6 fL (7.9-10.8); MONOCYTES # (AUTO) 0.8 10^3/uL (0.0-1.0); MONOCYTES % (AUTO) 7.5 %; NEUTROPHILS # (AUTO) 7.1 10^3/uL (1.5-6.6); NEUTROPHILS % (AUTO) 68.6 %; PLT - PLATELET COUNT 211 10^3/uL (130-450); RED BLOOD COUNT 3.96 10^6/uL (4.20-5.40); RED CELL DISTRIBUTION WIDTH 14.9 % (12.0-15.0); WHITE BLOOD COUNT 10.3 x10^3/uL (4.8-10.8)
[2021-01-28 15:00] LABS: ALBUMIN 3.3 g/dL (3.2-5.5); BILIRUBIN,TOTAL 0.5 mg/dL (0.2-1.0); CALCIUM 9.2 mg/dL (8.5-10.3); CREATININE 0.7 mg/dL (0.4-1.0); POTASSIUM 3.5 mmol/L (3.5-5.0); TOTAL PROTEIN 6.7 g/dL (6.7-8.2)
[2021-01-28] MEDS ORDERED: SODIUM CHLORIDE FLUSH 0.9% 10 ML SYRINGE IVP SCH (17:00)
[2021-01-28 18:09] LABS: BILIRUBIN,URINE NEGATIVE (NEGATIVE); GLUCOSE, URINE (UA) NEGATIVE (NEGATIVE); KETONES,URINE (UA) TRACE mg/dL (NEGATIVE); LEUKOCYTE ESTERASE, URINE NEGATIVE (NEGATIVE); NITRITE,URINE NEGATIVE (NEGATIVE); OCCULT BLOOD,URINE TRACE-INTA (NEGATIVE); PROTEIN,URINE NEGATIVE (NEGATIVE); UROBILINOGEN,URINE 0.2 (NORMAL) E.U./dL (NORMAL)
[2021-01-28 18:13] LABS: CLARITY,URINE CLEAR (CLEAR)
[2021-01-28 18:29] LABS: CREATININE,URINE 250.5 mg/dL; PROTEIN/CREATININE RATIO,URINE 0.1 (<=0.2)
[2021-01-28] MEDS: miSOPROStoL 100 MCG TABLET BC SCH (18:44)
[2021-01-29] MEDS: miSOPROStoL 100 MCG TABLET BC SCH (00:19)
--- NOTE | 2021-01-29 00:32 | PREOP HISTORY & PHYSICAL ---
DATE OF SERVICE: 01/28/2021 Physician: Tigre Edwards MD IDENTIFICATION: The patient is a 25-year-old G2, P0, AB1 female. She is 36 weeks today. Her EDC is 02/25/2021. She initiated her OB care at [facility]. She transferred to our facility at 24 weeks EGA. She has a diagnosis of chronic hypertension. She received NSTs with AFIs. She is noted to have progressively decreasing amniotic fluid volume. She started initially with an PENNY of 9 and has decreased now to 5 cm. Initially, the pockets were running in the normal range, but her most recent ultrasound shows a maximal pocket of 2.5 cm. She has been doing nonstress tests, which have all been reactive. During this time, she has developed blood pressures in the 150s/90s regions and for this reason, has been started on labetalol for antihypertensive. She has also been taking a low- dose aspirin on a daily basis. Her laboratories show her to be O positive. She is rubella immune. Her RPR, chlamydia GC are all negative. She had initially an elevated 50 gram Glucola at 147 and now her 3-hour GTT, however, was noted to be normal. She is varicella negative, as well as hepatitis C negative. PHYSICAL EXAM VITAL SIGNS: Blood pressure on admission was 143/74. HEENT: Pupils equal, round. Extraocular muscles are intact. Thyroid is not palpably enlarged. HEART: Regular rate and rhythm without murmurs. LUNGS: Lung eaton are clear without rales or wheezes. ABDOMEN: Gravid. Her last exam shows her fundal height 35 cm on 01/19/2021. IMPRESSION 1. A 25-year-old G2, P0 female at 36 weeks. 2. Hypertension with gestational hypertension added to this, she has got normal PIH labs. 3. Oligohydramnios, which is worsening with time. She currently has an PENNY of 5. Maximal pocket is 2.6 cm. PLAN: At this point, because of worsening oligohydramnios, we will start with cervical ripening and intend to deliver vaginally. The patient has already received betamethasone in the last week to help with lung maturity. Issues of prematurity ave been reviewed. TD: 01/29/2021 00:30 [facility]
[2021-01-29] MEDS ORDERED: ZOLPIDEM 5 MG TABLET PO SCH (05:00)
[2021-01-29 08:02] VITALS: BP 131/77
[2021-01-29] MEDS: LABETALOL 100 MG TABLET PO SCH ×2 (08:10→08:33)
--- NOTE | 2021-01-29 08:47 | Discharge Plan ---
Discharge Plan Problem Reviewed?: Yes Disposition: Home, Self Care Condition: Good Diet: Regular Activity Restrictions: no formal exercise Shower Restrictions: No Driving Restrictions: No No Smoking: If you smoke, Please STOP! Call for help. Follow-up with: Marilee Packer MD [Provider Admit Priv/Credential] - (in a few days)
--- NOTE | 2021-01-29 09:54 | Ultrasound Report ---
PROCEDURE: OB Limited INDICATIONS: low amionic fluid OUTSIDE/PRIOR DATING DATA: Last menstrual period (LMP): Unknown. Estimated date of delivery (LOAN), per provider: 02/25/2021 TECHNIQUE: Real-time scanning was performed of the fetus, with image documentation. Endovaginal scanning: Not performed COMPARISON: None. FINDINGS: A single living intrauterine gestation is present. Presentation: Cephalic Placenta: Placental position is posterior, without previa. Amniotic fluid index: 5.4 cm, very low at the 1st percentile for gestational age. The largest pocket is 2.9 cm. heart rate: 139 beats per minutes. Maternal cervical canal: 4.1 cm long; normal length is 2.5 cm or more. Estimated gestational age from initial scan: 36 weeks 1 day. IMPRESSION: Single live intrauterine gestation with very low amniotic fluid index at the 1st percentile. Reviewed by: Charles Mao MD on 01/29/2021 9:53 AM PDT Approved by: Charles Mao MD on 01/29/2021 9:53 AM PDT Station ID: [id number]
--- NOTE | 2021-01-29 16:23 | DISCHARGE SUMMARY ---
Physician: Marilee Packer MD DATE OF ADMISSION: 01/28/2021 DATE OF DISCHARGE: 01/29/2021 ADMISSION DIAGNOSES: 1. Intrauterine at 36 weeks 0 days. 2. Chronic hypertension. DISCHARGE DIAGNOSES: 1. Intrauterine at 36 weeks 1 day. 2. Chronic hypertension, stable. PROCEDURES: Continuous monitoring. HOSPITAL COURSE: The patient has been followed this that has been complicated by chronic h ypertension. For this, she was getting surveillance. Surveillance did indicate a progressively decr eased amount of amniotic fluid over time. Her PENNY was 9.6, MVP of 3.4 on 01/14/2021 and then by 10/2020, her PENNY was 5.1 with an MVP of 2.6. These numbers did progressively drop over time, the 10/2020 number was not a unique finding. She also, for her chronic hypertension, had just recently ne eded to be started on labetalol for blood pressures in the 160s. Prior to recently she has not been o n any blood pressure medications. On admission, the patient had normal preeclampsia labs and a megan l protein to creatinine ratio. Throughout her hospitalizations, her blood pressures were normal to m ildly elevated. Her labetalol dose was held and her blood pressures overnight were all normal, inclu ding ones as low as 107/58. Patient's continuous monitoring was reactive and reassuring with a basel ine of 130 beats per minute, moderate long-term variability present, accelerations present, decelerat ions absent, [place] without contractions. No changes over time. Due to her evolving changes with her increase in blood pressures and decrease in her volume of amniotic fluid, induction of labor was star akua with misoprostol because she was 36 weeks and 0 days. She received multiple doses of misoprostol without feeling anything more than mild abdominal cramping. No vaginal bleeding or leaking of water . She was having good movement. No visual changes, upper abdominal pain, headaches or lower e xtremity edema present. The patient was requesting discharge home because she did not feel like anyt ruben was going on and she was worried about the status of her baby. A repeat fluid evaluatio n today shows an PENNY of 5.4 and an MVP of 2.6, which are normal, but on the low end. With her consis tent blood pressures, continuously normal surveillance, stable amniotic fluid volume, and lack of progress of cervical ripening, I do feel like it is okay to send her home and bring her back for i nduction at 37 weeks and 0 days. In the interim, she will get an NST and an PENNY in 48 hours. We bernadette l continue surveillance until the induction of labor unless earlier induction is indicated. labor precautions were given as well as preeclampsia precautions. The patient is to check her blood pressure b.i.d. at home before she is to take her labetalol. She is supposed to take her blood press ure medicine if her blood pressure is more than 140/90. She is to hold it if it is less than 140/90. If she has a blood pressure more than 160/110, then she is advised to come immediately to triage. Otherwise, if her blood pressure is in the mild range, she can take her labetalol 100 mg. DISCHARGE DISPOSITION: Home. Follow up in two days in OB triage for surveillance. CONDITION: Good. PRECAUTIONS: No formal exercise. TD: 01/29/2021 16:22
== END 2021-01-29 09:20 | disposition home or self-care (01) ==
LOC: WFO 09:56 → FBP 09:59 → WFO 11:44 → FBP 11:45
PROVIDERS: ADMIT Obstetrics & Gynecology; ATTEND Obstetrics & Gynecology
DX: O10.913 Unspecified pre-existing hypertension complicating pregnancy, third trimester (principal); Z3A.36 36 weeks gestation of pregnancy; Z20.822 Contact with and (suspected) exposure to COVID-19
CPT/HCPCS: 36415; 59025; 76815; 80053; 81003; 82570; 84156; 84550; 85025; 86850; 86900; 86901; 87635; 87797; A9270; G0378; 80061; 81001; 83721; 84153; 84443; 87086

== ENCOUNTER 2021-01-31 09:48 | Inpatient (IN) | payer OTHER ==
--- NOTE | 2021-01-31 11:20 | Ultrasound Report ---
PROCEDURE: OB Limited INDICATIONS: Chronic HTN, Oligohydramnios OUTSIDE/PRIOR DATING DATA: Last menstrual period (LMP): Unknown. LMP-based estimated date of delivery (LOAN): Unknown. TECHNIQUE: Real-time transabdominal scanning was performed of the fetus, with image documentation. COMPARISON: 01/29/2021 Limited obstetrical ultrasound. FINDINGS: A single living intrauterine gestation is present. Presentation: Vertex Placenta: Placental position is fundal, without previa. Amniotic fluid index: 4.7 cm, at the 0.7 percentile for gestational age. Maximum vertical pocket candice sures 2.2 cm in depth. heart rate: 131 beats per minutes. Maternal cervical canal: Not well assessed. Other findings: No evidence of pyelectasis. Bladder is present, not distended. IMPRESSION: Single living intrauterine gestation with amniotic fluid index of 4.7 percentile which c orresponds to below the 1st percentile (0.7%). Reviewed by: Nolan May on 01/31/2021 10:19 AM NESHA Approved by: Nolan May on 01/31/2021 10:19 AM NESHA Station ID: [id number]
[2021-01-31 11:49] LABS: BASOPHILS % (AUTO) 0.2 %; EOSINOPHILS # (AUTO) 0.1 10^3/uL (0.0-0.7); EOSINOPHILS % (AUTO) 0.5 %; HCT - HEMATOCRIT 37.1 % (37.0-47.0); HGB - HEMOGLOBIN 12.8 g/dL (12.0-16.0); LYMPHOCYTES # (AUTO) 1.8 10^3/uL (1.5-3.5); LYMPHOCYTES % (AUTO) 16.2 %; MEAN CORPUSCULAR HEMOGLOBIN 30.3 pg (27.0-31.0); MEAN CORPUSCULAR HGB CONC 34.5 g/dL (32.0-36.0); MEAN CORPUSCULAR VOLUME 87.7 fL (81.0-99.0); MONOCYTES # (AUTO) 0.9 10^3/uL (0.0-1.0); MONOCYTES % (AUTO) 8.3 %; NEUTROPHILS # (AUTO) 8.2 10^3/uL (1.5-6.6); NEUTROPHILS % (AUTO) 74.3 %; PLT - PLATELET COUNT 224 10^3/uL (130-450); RED BLOOD COUNT 4.23 10^6/uL (4.20-5.40); RED CELL DISTRIBUTION WIDTH 14.6 % (12.0-15.0)
[2021-01-31] MEDS ORDERED: TERBUTALINE 1 MG/ML VIAL SUBQ PRN (11:54)
[2021-01-31] MEDS ORDERED: LIDOCAINE-MPF 1% 30 ML VIAL ID PRN (11:54)
[2021-01-31] MEDS ORDERED: OXYTOCIN 10 UNIT/ML VIAL IM PRN (11:54)
[2021-01-31] MEDS ORDERED: CARBOPROST TROMETHAMINE 250 MCG/ML AMP IM PRN (11:54)
[2021-01-31] MEDS ORDERED: TRANEXAMIC ACID IN NACL 1,000 MG/100 ML BAG IV PRN (11:54)
[2021-01-31] MEDS ORDERED: SODIUM CHLORIDE FLUSH 0.9% 10 ML SYRINGE IVP PRN (11:54)
[2021-01-31] MEDS ORDERED: METHYLERGONOVINE 0.2 MG/ML VIAL IM PRN (11:54)
[2021-01-31] MEDS ORDERED: OXYTOCIN/SODIUM CHLORIDE 500 ML IV PRN ×2 (11:54)
[2021-01-31] MEDS ORDERED: miSOPROStoL 200 MCG TABLET BC PRN (11:54)
[2021-01-31] MEDS ORDERED: fentaNYL 100 MCG/2 ML VIAL IVP PRN (11:54)
[2021-01-31 12:25] LABS: ALBUMIN 3.4 g/dL (3.2-5.5); ALKALINE PHOSPHATASE 113 IU/L (42-121); ALT ALANINE AMINOTRANSFERASE < 10 IU/L (10-60); AST ASPARTATE AMINOTRANSFERASE 11 IU/L (10-42); BILIRUBIN,TOTAL 0.4 mg/dL (0.2-1.0); BUN - BLOOD UREA NITROGEN 8 mg/dL (6-20); CALCIUM 9.3 mg/dL (8.5-10.3); CARBON DIOXIDE - CO2 23 mmol/L (21-32); CHLORIDE 103 mmol/L (101-111); CREATININE 0.5 mg/dL (0.4-1.0); GFR - MDRD 152 (>89); GLUCOSE 94 mg/dL (70-100); POTASSIUM 4.1 mmol/L (3.5-5.0); SODIUM 137 mmol/L (135-145); TOTAL PROTEIN 6.9 g/dL (6.7-8.2)
--- NOTE | 2021-01-31 12:34 | HISTORY & PHYSICAL EXAMINATION ---
HPI - History of Present Illness HPI Comment/Other: CC: induction of labor HPI: pt with a hx of chronic HTN, has been getting surveillance, PENNY is <5 today. ROS: no fevers, cough, vag bleeding, leaking of fluid, contractions, DUMONT, visual changes, upper abd pain, or change in swelling. Having good FM. PMH: obese, chronic HTN PSH: wisdom teeth Meds: labetalol 100mg po PRN elevated BP, PNV, ASA 81mg daily Allergies: NKDA SH: no t/e/d. 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 FH: multiple members with HTN OB: . Full record not available as clinic EMR is down currently. LOAN 02/25/21, criteria unknown, 36w3d Reports normal anatomy US QS normal O+, RI, GBS neg, STI neg. s/p Tdap O: AVSS Alert, smiling, NAD Abd soft nt/nd Vertex by ludmila, EFW 7.25# SVE closed/50/high/very firm Normal CBC. CMP and P:C pending. Category 1 NST A/P: 25yo at 36w3d here for IOL due to new oligohydramnios seen on surveillance due to chronic hypertension. Had been here for IOL at 36w due to these indciations though the oligo was borderline at that time. She didn't go into labor after multiple doses of misoprostol and requested to go home. Now with worsening PENNY of 4, IOL recommended. Discussed IOL method. Alternative of no IOL and continued surveillance discussed. Questions answered and consent signed. IOL: misoprostol q4h Chronic HTN: BP q4h, PIH labs normal so far, BP normal currently, will do labetalol PRN 155/95. Fetus: EFW 7.25#, oligohydramnios present, normal anatomy per record but US not available, genetic screen normal, vertex, cat 1 NST expected: peds aware, GBS neg : RI, O+, need to verify varicella status. Obesity: SCD PRN peidural Social & Family Hx - Social History Smoking Status: Never smoker Meds/Allgy - Allergies Allergies/Adverse Reactions: Allergies Allergy/AdvReac Type Severity Reaction Status Date / Time No Known Drug Allergies Allergy Verified 01/14/21 09:56 Exam - Vital Signs Vital Signs: Vital Signs x48h Temp Pulse Pulse Resp BP BP Pulse Ox 01/31/21 11:17 98.8 F 108 H 18 128/80 01/31/21 10:30 113 H 20 128/76 01/31/21 09:55 98.4 F 126 H 18 147/84 H 100 Results - Lab Results Fish Bones: 01/31/21 11:36 Other Lab Results: Lab Results x24hrs 01/31/21 Range/Units 11:36 WBC 11.0 H (4.8-10.8) x10^3/uL RBC 4.23 (4.20-5.40) 10^6/uL Hgb 12.8 (12.0-16.0) g/dL Hct 37.1 (37.0-47.0) % MCV 87.7 (81.0-99.0) fL MCH 30.3 (27.0-31.0) pg MCHC 34.5 (32.0-36.0) g/dL RDW 14.6 (12.0-15.0) % Plt Count 224 (130-450) 10^3/uL MPV 11.0 H (7.9-10.8) fL Neut # (Auto) 8.2 H (1.5-6.6) 10^3/uL Lymph # (Auto) 1.8 (1.5-3.5) 10^3/uL [place] # (Auto) 0.9 (0.0-1.0) 10^3/uL Eos # (Auto) 0.1 (0.0-0.7) 10^3/uL Baso # (Auto) 0.0 (0.0-0.1) 10^3/uL Absolute Nucleated RBC 0.00 x10^3/uL Nucleated RBC % 0.0 /100WBC
[2021-01-31] MEDS: miSOPROStoL 100 MCG TABLET BC SCH ×3 (12:39→20:50)
[2021-01-31 14:25] LABS: CREATININE,URINE 242.2 mg/dL; PROTEIN/CREATININE RATIO,URINE 0.1 (<=0.2)
[2021-02-01] MEDS: miSOPROStoL 100 MCG TABLET BC SCH ×5 (01:00→18:22)
--- NOTE | 2021-02-01 11:44 | PROVIDER PROGRESS NOTE ---
Subjective - Subjective Subjective: Feeling lower abd cramping and pressure that is different than before, especially since early this am. No VB, LOF, DUMONT, visual changes, or upper abd pain. AVSS except for a few mild-range BPs Alert, resting, NAD fingertip/50/-2/mid/medium NST category 1 [place]: irregular contractions A/P: 25yo at 36w4d here for IOL due to new oligohydramnios seen on surveillance due to chronic hypertension. Baby tolerating IOL well. IOL: s/p misoprostol for 6 doses. Garrett 4, curved cervix would be difficult to place ingram balloon. Will start pitocin, encouraged movement for head engagement, consider balloon PRN. Chronic HTN: BP q4h, PIH labs normal so far, BP normal currently, will do labetalol PRN 155/95. Fetus: EFW 7.25#, oligohydramnios present, normal anatomy per record but US not available, genetic screen normal, vertex, cat 1 NST expected: peds aware, GBS neg : RI, O+, varicella NI Obesity: SCD PRN epidural Objective - Lab Results Fish Bones: 01/31/21 11:36 01/31/21 12:05 Other Labs: Lab Results x24hrs 01/31/21 01/31/21 01/31/21 Range/Units 13:50 12:05 11:36 WBC 11.0 H (4.8-10.8) x10^3/uL RBC 4.23 (4.20-5.40) 10^6/uL Hgb 12.8 (12.0-16.0) g/dL Hct 37.1 (37.0-47.0) % MCV 87.7 (81.0-99.0) fL MCH 30.3 (27.0-31.0) pg MCHC 34.5 (32.0-36.0) g/dL RDW 14.6 (12.0-15.0) % Plt Count 224 (130-450) 10^3/uL MPV 11.0 H (7.9-10.8) fL Neut # (Auto) 8.2 H (1.5-6.6) 10^3/uL Lymph # (Auto) 1.8 (1.5-3.5) 10^3/uL [place] # (Auto) 0.9 (0.0-1.0) 10^3/uL Eos # (Auto) 0.1 (0.0-0.7) 10^3/uL Baso # (Auto) 0.0 (0.0-0.1) 10^3/uL Absolute Nucleated RBC 0.00 x10^3/uL Nucleated RBC % 0.0 /100WBC Sodium 137 (135-145) mmol/L Potassium 4.1 (3.5-5.0) mmol/L Chloride 103 (101-111) mmol/L Carbon Dioxide 23 (21-32) mmol/L Anion Gap 11.0 (6-13) BUN 8 (6-20) mg/dL Creatinine 0.5 (0.4-1.0) mg/dL Estimated GFR (MDRD) 152 (>89) Glucose 94 (70-100) mg/dL Calcium 9.3 (8.5-10.3) mg/dL Total Bilirubin 0.4 (0.2-1.0) mg/dL AST 11 (10-42) IU/L ALT < 10 L (10-60) IU/L Alkaline Phosphatase 113 (42-121) IU/L Total Protein 6.9 (6.7-8.2) g/dL Albumin 3.4 (3.2-5.5) g/dL Globulin 3.5 (2.1-4.2) g/dL Albumin/Globulin Ratio 1.0 (1.0-2.2) Urine Creatinine 242.2 mg/dL Ur Total Protein Timed 16 mg/dL Protein/Creatinin Ratio 0.1 (<=0.2) Blood Type Antibody Screen 01/31/21 Range/Units 11:36 WBC (4.8-10.8) x10^3/uL RBC (4.20-5.40) 10^6/uL Hgb (12.0-16.0) g/dL Hct (37.0-47.0) % MCV (81.0-99.0) fL MCH (27.0-31.0) pg MCHC (32.0-36.0) g/dL RDW (12.0-15.0) % Plt Count (130-450) 10^3/uL MPV (7.9-10.8) fL Neut # (Auto) (1.5-6.6) 10^3/uL Lymph # (Auto) (1.5-3.5) 10^3/uL [place] # (Auto) (0.0-1.0) 10^3/uL Eos # (Auto) (0.0-0.7) 10^3/uL Baso # (Auto) (0.0-0.1) 10^3/uL Absolute Nucleated RBC x10^3/uL Nucleated RBC % /100WBC Sodium (135-145) mmol/L Potassium (3.5-5.0) mmol/L Chloride (101-111) mmol/L Carbon Dioxide (21-32) mmol/L Anion Gap (6-13) BUN (6-20) mg/dL Creatinine (0.4-1.0) mg/dL Estimated GFR (MDRD) (>89) Glucose (70-100) mg/dL Calcium (8.5-10.3) mg/dL Total Bilirubin (0.2-1.0) mg/dL AST (10-42) IU/L ALT (10-60) IU/L Alkaline Phosphatase (42-121) IU/L Total Protein (6.7-8.2) g/dL Albumin (3.2-5.5) g/dL Globulin (2.1-4.2) g/dL Albumin/Globulin Ratio (1.0-2.2) Urine Creatinine mg/dL Ur Total Protein Timed mg/dL Protein/Creatinin Ratio (<=0.2) Blood Type O POSITIVE Antibody Screen NEGATIVE
[2021-02-01] MEDS: SODIUM CHLORIDE FLUSH 0.9% 10 ML SYRINGE IVP SCH ×3 (13:05→18:48)
[2021-02-01] MEDS ORDERED: LABETALOL 100 MG TABLET PO PRN (18:28)
--- NOTE | 2021-02-01 18:28 | PROVIDER PROGRESS NOTE ---
Subjective - Subjective Subjective: Doing well, feeling a lot more pressure in the vagina, felt contractions q few minutes a while ago but no discrete contractions now. No vB or LOF. BP normal to mild range, NST cat 1, toco negative to irritable. Continue with 1 more dose of 50mcg miso and then pitocin tonight. Objective - Lab Results Fish Bones: 01/31/21 11:36 01/31/21 12:05
[2021-02-01] MEDS: LACTATED RINGERS 1,000 ML IV PRN (22:31)
--- NOTE | 2021-02-02 01:25 | ANESTHESIA ---
Pre-Anesthesia VS, & Labs - Diagnosis Term IUP, IOL, oligohydraminos/HTN - Procedure epidural for Vital Signs: Temp Pulse Resp BP Pulse Ox 37.2 C 108 H 18 128/80 100 01/31/21 17:00 01/31/21 11:17 01/31/21 11:17 01/31/21 11:17 01/31/21 09:55 Height: 5 ft 6 in Weight (kg): 113.398 kg Body Mass Index: 40.3 BMI Classification: Morbidly Obese - NPO Last Fluid Intake: t/o day Last Food Intake: full dinner - Is Patient ?: Yes - Lab Results Current Lab Results: Laboratory Tests 01/31/21 12:05: Sodium 137, Potassium 4.1, Chloride 103, Carbon Dioxide 23, Anion Gap 11.0, BUN 8, Creatinine 0.5, Estimated GFR (MDRD) 152, Glucose 94, Calcium 9.3, Total Bilirubin 0.4, AST 11, ALT < 10 L, Alkaline Phosphatase 113, Total Protein 6.9, Albumin 3.4, Globulin 3.5, Albumin/Globulin Ratio 1.0 01/31/21 11:36: WBC 11.0 H, RBC 4.23, Hgb 12.8, Hct 37.1, MCV 87.7, MCH 30.3, MCHC 34.5, RDW 14.6, Plt Count 224, MPV 11.0 H, Neut # (Auto) 8.2 H, Lymph # (Auto) 1.8, [place] # (Auto) 0.9, Eos # (Auto) 0.1, Baso # (Auto) 0.0, Absolute Nucleated RBC 0.00, Nucleated RBC % 0.0 01/31/21 11:36: Blood Type O POSITIVE, Antibody Screen NEGATIVE Lab results reviewed: Yes Fish Bones: 01/31/21 11:36 01/31/21 12:05 Home Medications and Allergies Active Medications Acetaminophen (Acetaminophen 325 Mg Tablet) 650 mg PO Q6H PRN PRN Reason: pain Carboprost Tromethamine (Carboprost Tromethamine 250 Mcg/Ml Amp) 250 mcg IM Q15M PRN PRN Reason: Step 4: Hemorrhage protocol Stop: 02/05/21 11:55 Fentanyl (Fentanyl 100 Mcg/2 Ml Vial) 50 mcg IVP Q1H PRN PRN Reason: PAIN Lactated Ringer's (Lr) 1,000 mls @ 150 mls/hr IV .Q6H40M PRN PRN Reason: OB indication Last Admin: 02/01/21 22:31 Dose: 100 mls/hr Documented by: Oxytocin/Sodium Chloride (Pitocin/Sodium Chloride) 500 mls @ 999 mls/hr IV PRN PRN; Protocol PRN Reason: POST- HEMORR PREVENTION Stop: 02/05/21 11:55 Tranexamic Acid (Tranexamic 1,000 Mg/100ml-Nacl) 1,000 mg in 100 mls @ 600 mls/hr IV .ONCE PRN PRN Reason: EBL >1200mL and within 3hr Stop: 02/05/21 11:55 Oxytocin/Sodium Chloride (Pitocin/Sodium Chloride) 500 mls @ 1 mls/hr IV TITR PRN; Protocol PRN Reason: MD order Last Admin: 02/01/21 22:35 Dose: 1 milliunit/min, 1 mls/hr Documented by: Labetalol HCl (Labetalol 100 Mg Tablet) 100 mg PO Q8H PRN PRN Reason: hypertension Lidocaine HCl (Lidocaine-Mpf 1% 30 Ml Vial) 30 ml ID .ONCE PRN PRN Reason: PERINEAL REPAIR Stop: 02/05/21 11:55 Methylergonovine Maleate (Methylergonovine 0.2 Mg/Ml Vial) 0.2 mg IM .ONCE PRN PRN Reason: Step 2: Hemorrhage protocol Stop: 02/05/21 11:55 Misoprostol (Misoprostol 200 Mcg Tablet) 800 mcg BC .ONCE PRN PRN Reason: Step 3: Hemorrhage protocol Stop: 02/05/21 11:55 Ondansetron HCl (Ondansetron 4 Mg/2 Ml Vial) 4 mg IVP Q4H PRN PRN Reason: Nausea / Vomiting Oxytocin (Oxytocin 10 Unit/Ml Vial) 10 unit IM .ONCE PRN PRN Reason: Step one: If no IV access Stop: 02/05/21 11:55 Sodium Chloride (Sodium Chloride Flush 0.9% 10 Ml Syringe) 10 ml IVP PRN PRN PRN Reason: NEEDED PER PROVIDER ORDERS Sodium Chloride (Sodium Chloride Flush 0.9% 10 Ml Syringe) 10 ml IVP 0100,0900,1700 VALENTINO Last Admin: 02/01/21 18:48 Dose: Not Given Documented by: Terbutaline Sulfate (Terbutaline 1 Mg/Ml Vial) 0.25 mg SUBQ Q1H PRN PRN Reason: persistent bradycardia Allergies/Adverse Reactions: Allergies Allergy/AdvReac Type Severity Reaction Status Date / Time No Known Drug Allergies Allergy Verified 01/14/21 09:56 Anes History & Medical History - Anesthetic History Anesthesia Complications: reports: No previous complications Family history of Anesthesia Complications: Denies Family history of Malignant Hyperthermia: Denies - Medical History Cardiovascular: reports: Hypertension (chronic, rx labetalol) Pulmonary: reports: None Urinary: reports: None Neuro: reports: None Endocrine/Autoimmune: reports: None Blood Disorders: reports: None Smoking Status: Never smoker - Surgical History Other Past Surgical History: wisdom teeth extraction Exam General: Alert, Oriented x3, Cooperative Dental: WNL Mouth Openin Fingerbreadth Neck Mobility: Normal Mallampati classification: II (receding chin, anticipate anterior airway) Thyromental Distance: 4-6 cm Respiratory: No respiratory distress Cardiovascular: Other (tachy t/o hospitalization(low 100's)) Neurological: Normal gait, Normal speech Mental/Cognitive Status: Alert/Oriented X3, Normal for patient Cognitive Status: Within normal limits Plan Anesthesia Type: Epidural Consent for Procedure(s) Verified and Reviewed: Yes Code Status: Attempt Resuscitation ASA classification: 2-Mild systemic disease Is this case an emergency?: No
[2021-02-02] MEDS: LACTATED RINGERS 1,000 ML IV PRN ×3 (08:33→22:27)
[2021-02-02] MEDS: fentaNYL 100 MCG/2 ML VIAL IVP PRN ×2 (11:50→14:38)
--- NOTE | 2021-02-02 12:23 | PROVIDER PROGRESS NOTE ---
Subjective - Subjective Subjective: Up to 16 on pit, felt some contractions every few min but they were mild and she was able to sleep through them. AVSS SVE unchanged NST category 1 [place] not picking up well Cook catheter placed after verbal consent, multiple tries needed with speculum and digitally, finally placed digitally, 80cc in each balloon. IOL for 48h without much cervical change s/p about 30h of miso followed by pit up to 16. Will stop pit, go back to miso, leave cook in for 12hh. Objective - Vital Signs/Intake & Output Intake & Output: Intake & Output 01/30/21 01/31/21 02/01/21 02/02/21 23:59 23:59 23:59 23:59 Intake Total 400 2245.400 Balance 400 2245.400 - Lab Results Fish Bones: 01/31/21 11:36 01/31/21 12:05
[2021-02-02] MEDS: SODIUM CHLORIDE FLUSH 0.9% 10 ML SYRINGE IVP SCH (12:24)
[2021-02-02] MEDS ORDERED: FLUCONAZOLE 100 MG TABLET PO ONE (13:00)
[2021-02-02] MEDS: ONDANSETRON 4 MG/2 ML VIAL IVP PRN (13:11)
[2021-02-02] MEDS ORDERED: ZOLPIDEM 5 MG TABLET PO PRN (13:45)
[2021-02-02] MEDS ORDERED: oxyCODONE 5 MG TABLET PO ONE (14:33)
[2021-02-02] MEDS: ACETAMINOPHEN 325 MG TABLET PO PRN (14:57)
[2021-02-02] MEDS: miSOPROStoL 100 MCG TABLET BC SCH ×3 (15:00→23:03)
[2021-02-02] MEDS ORDERED: fentaNYL 100 MCG/2 ML VIAL ONE (15:45)
[2021-02-02] MEDS ORDERED: BUPIVACAINE 0.25% PF 10 ML VIAL ONE (15:45)
[2021-02-02] MEDS ORDERED: ROPIVACAINE 0.2% 200 MG/100 ML BAG EP ONE (15:46)
--- NOTE | 2021-02-02 16:32 | ANESTHESIA ---
Pre-Anesthesia VS, & Labs - Diagnosis active labor - Procedure labor epidural Vital Signs: Temp Pulse Resp BP Pulse Ox 37.2 C 108 H 18 128/80 100 01/31/21 17:00 01/31/21 11:17 01/31/21 11:17 01/31/21 11:17 01/31/21 09:55 Height: 5 ft 6 in Weight (kg): 113.398 kg Body Mass Index: 40.3 BMI Classification: Morbidly Obese - NPO >8 hours - Is Patient ?: Yes - Lab Results Current Lab Results: Laboratory Tests 01/31/21 12:05: Sodium 137, Potassium 4.1, Chloride 103, Carbon Dioxide 23, Anion Gap 11.0, BUN 8, Creatinine 0.5, Estimated GFR (MDRD) 152, Glucose 94, Calcium 9.3, Total Bilirubin 0.4, AST 11, ALT < 10 L, Alkaline Phosphatase 113, Total Protein 6.9, Albumin 3.4, Globulin 3.5, Albumin/Globulin Ratio 1.0 01/31/21 11:36: WBC 11.0 H, RBC 4.23, Hgb 12.8, Hct 37.1, MCV 87.7, MCH 30.3, MCHC 34.5, RDW 14.6, Plt Count 224, MPV 11.0 H, Neut # (Auto) 8.2 H, Lymph # (Auto) 1.8, [place] # (Auto) 0.9, Eos # (Auto) 0.1, Baso # (Auto) 0.0, Absolute Nucleated RBC 0.00, Nucleated RBC % 0.0 01/31/21 11:36: Blood Type O POSITIVE, Antibody Screen NEGATIVE Fish Bones: 01/31/21 11:36 01/31/21 12:05 Home Medications and Allergies Active Medications Acetaminophen (Acetaminophen 325 Mg Tablet) 650 mg PO Q6H PRN PRN Reason: pain Last Admin: 02/02/21 14:57 Dose: 650 mg Documented by: Carboprost Tromethamine (Carboprost Tromethamine 250 Mcg/Ml Amp) 250 mcg IM Q15M PRN PRN Reason: Step 4: Hemorrhage protocol Stop: 02/05/21 11:55 Fentanyl (Fentanyl 100 Mcg/2 Ml Vial) 100 mcg IVP Q1H PRN PRN Reason: PAIN Last Admin: 02/02/21 14:38 Dose: 100 mcg Documented by: Lactated Ringer's (Lr) 1,000 mls @ 150 mls/hr IV .Q6H40M PRN PRN Reason: OB indication Last Infusion: 02/02/21 12:23 Dose: 0 mls/hr Documented by: Tranexamic Acid (Tranexamic 1,000 Mg/100ml-Nacl) 1,000 mg in 100 mls @ 600 mls/hr IV .ONCE PRN PRN Reason: EBL >1200mL and within 3hr Stop: 02/05/21 11:55 Oxytocin/Sodium Chloride (Pitocin/Sodium Chloride) 500 mls @ 1 mls/hr IV TITR PRN; Protocol PRN Reason: MD order Last Titration: 02/02/21 12:23 Dose: 0 milliunit/min, 0 mls/hr Documented by: Oxytocin/Sodium Chloride (Pitocin/Sodium Chloride) 500 mls @ 1 mls/hr IV TITR VALENTINO; Protocol Labetalol HCl (Labetalol 100 Mg Tablet) 100 mg PO Q8H PRN PRN Reason: hypertension Lidocaine HCl (Lidocaine-Mpf 1% 30 Ml Vial) 30 ml ID .ONCE PRN PRN Reason: PERINEAL REPAIR Stop: 02/05/21 11:55 Methylergonovine Maleate (Methylergonovine 0.2 Mg/Ml Vial) 0.2 mg IM .ONCE PRN PRN Reason: Step 2: Hemorrhage protocol Stop: 02/05/21 11:55 Misoprostol (Misoprostol 200 Mcg Tablet) 800 mcg BC .ONCE PRN PRN Reason: Step 3: Hemorrhage protocol Stop: 02/05/21 11:55 Misoprostol (Misoprostol 100 Mcg Tablet) 50 mcg BC Q4H VALENTINO Stop: 02/02/21 21:21 Last Admin: 02/02/21 15:00 Dose: 50 mcg Documented by: Ondansetron HCl (Ondansetron 4 Mg/2 Ml Vial) 4 mg IVP Q4H PRN PRN Reason: Nausea / Vomiting Last Admin: 02/02/21 13:11 Dose: 4 mg Documented by: Oxytocin (Oxytocin 10 Unit/Ml Vial) 10 unit IM .ONCE PRN PRN Reason: Step one: If no IV access Stop: 02/05/21 11:55 Sodium Chloride (Sodium Chloride Flush 0.9% 10 Ml Syringe) 10 ml IVP PRN PRN PRN Reason: NEEDED PER PROVIDER ORDERS Sodium Chloride (Sodium Chloride Flush 0.9% 10 Ml Syringe) 10 ml IVP 0100,0900,1700 VALENTINO Last Admin: 02/02/21 12:24 Dose: 10 ml Documented by: Terbutaline Sulfate (Terbutaline 1 Mg/Ml Vial) 0.25 mg SUBQ Q1H PRN PRN Reason: persistent bradycardia Zolpidem Tartrate (Zolpidem 5 Mg Tablet) 5 mg PO ONCE PRN PRN Reason: Insomnia Stop: 02/02/21 23:59 Allergies/Adverse Reactions: Allergies Allergy/AdvReac Type Severity Reaction Status Date / Time No Known Drug Allergies Allergy Verified 01/14/21 09:56 Anes History & Medical History - Anesthetic History Anesthesia Complications: reports: No previous complications Family history of Anesthesia Complications: Denies Family history of Malignant Hyperthermia: Denies - Medical History Cardiovascular: reports: Hypertension (chronic, rx labetalol) Pulmonary: reports: None Urinary: reports: None Neuro: reports: None Endocrine/Autoimmune: reports: None Blood Disorders: reports: None Smoking Status: Never smoker - Surgical History Other Past Surgical History: wisdom teeth extraction Exam General: Alert, Oriented x3, Cooperative, No acute distress Dental: WNL Plan Anesthesia Type: Epidural Consent for Procedure(s) Verified and Reviewed: Yes Code Status: Attempt Resuscitation ASA classification: 2-Mild systemic disease Is this case an emergency?: No
[2021-02-02] MEDS ORDERED: ONDANSETRON 4 MG/2 ML VIAL IVP PRN (16:34)
[2021-02-02] MEDS ORDERED: diphenhydrAMINE INJ 50 MG/ML VIAL IVP PRN (16:34)
[2021-02-02] MEDS ORDERED: NALBUPHINE 10 MG/ML AMP IVP PRN (16:34)
[2021-02-02] MEDS ORDERED: METOCLOPRAMIDE 10 MG/2 ML VIAL IVP PRN (16:34)
[2021-02-02] MEDS ORDERED: NALOXONE 0.4 MG/ML VIAL IVP PRN (16:34)
[2021-02-02] MEDS ORDERED: ePHEDrine 50 MG/ML VIAL IVP PRN (16:34)
--- NOTE | 2021-02-02 18:08 | PROVIDER PROGRESS NOTE ---
Subjective - Subjective Subjective: Had quite a bit of constant severe cramping after balloon was placed. Deflated to 60/60cc which didn't provide enough improvment and so patient got an epidural. Currently pain-free. Cotractions not picking up well, feel irritable on palpation. Continue current plan. Objective - Vital Signs/Intake & Output Intake & Output: Intake & Output 01/30/21 01/31/21 02/01/21 02/02/21 23:59 23:59 23:59 23:59 Intake Total 400 3317.733 Balance 400 3317.733 - Lab Results Fish Bones: 01/31/21 11:36 01/31/21 12:05
[2021-02-02] MEDS: ROPIVACAINE 0.2% 200 MG/100 ML BAG EP PRN (21:57)
[2021-02-03] MEDS ORDERED: OXYTOCIN/SODIUM CHLORIDE 500 ML IV SCH (01:21)
[2021-02-03] MEDS: ROPIVACAINE 0.2% 200 MG/100 ML BAG EP PRN (05:06)
[2021-02-03] MEDS: LACTATED RINGERS 1,000 ML IV PRN (05:52)
[2021-02-03] MEDS ORDERED: LIDOCAINE-PF 2% 10 ML AMP SUBQ ONE ×2 (07:11→13:48)
[2021-02-03] MEDS: SODIUM CHLORIDE FLUSH 0.9% 10 ML SYRINGE IVP SCH ×4 (07:18→18:00)
[2021-02-03] MEDS: ONDANSETRON 4 MG/2 ML VIAL IVP PRN (07:25)
--- NOTE | 2021-02-03 07:38 | CONSULTATION NOTE ---
Consultation Report: Called as patient having 8/10 pain. Epidural at 17cm at skin, Lidocaine bolus 5cc x2 with complete relief of contractile pain. Pump settings changed per orders and PCEA instructed to patient.
[2021-02-03] MEDS ORDERED: ROPIVACAINE 0.2% 200 MG/100 ML BAG EP PRN (07:39)
--- NOTE | 2021-02-03 09:50 | PROVIDER PROGRESS NOTE ---
Subjective - Subjective Subjective: Seen at 07:30 and 09:30 Quite a bit of pain present, better after epidural bolus. Then cramping pain returned again, pt having pain between contractions that makes her grimace. AVSS, category 1 NST except for a variable decel associated with position change. SVE 4/75/-2 at 07:30, AROM clear and IUPC placed per pt's verbal consent. Pit was at 4. SVE 5/90/-1-2 at 09:30 with MVU 200. Good SVE change and adequate MVU. Will recheck SVE in a few hours. Pain control may continue to be an issue--pt has had pain disproportionate to others experiencing the same interventions--needed a epidural with the ripening balloon. Complains of significant pain between contractions but it is mostly left sided, feels like cramping. Suspect head is grinding on the pelvis in a painful way. No evidence of uterine rupture or infection. Kenny draining. Will manage with CRNAs. Chronic HTN stable. Objective - Vital Signs/Intake & Output Intake & Output: Intake & Output 01/31/21 02/01/21 02/02/21 02/03/21 23:59 23:59 23:59 23:59 Intake Total 400 4267.733 951.834 Output Total 200 Balance 400 4067.733 951.834 - Lab Results Fish Bones: 01/31/21 11:36 01/31/21 12:05
[2021-02-03] MEDS ORDERED: fentaNYL 100 MCG/2 ML VIAL ONE (09:57)
[2021-02-03] MEDS ORDERED: ROPIVACAINE 0.2% PF 10 ML VIAL ONE ×2 (10:03→14:32)
[2021-02-03] MEDS ORDERED: HYDROCORTISONE 1% CREAM 28 GM TUBE PR PRN (16:03)
[2021-02-03] MEDS ORDERED: SIMETHICONE CHEW 80 MG TABLET PO PRN (16:03)
[2021-02-03] MEDS ORDERED: WITCH HAZEL/GLYCERIN 1 PAD TOP PRN (16:03)
[2021-02-03] MEDS ORDERED: ONDANSETRON ODT 4 MG TABLET TL PRN (16:03)
--- NOTE | 2021-02-03 16:22 | DELIVERY NOTE ---
Delivery Note - Labor Labor: positive: Induced by oxytocin - Delivery Method Delivery Method: positive: Spontaneous vaginal delivery - Cervical Ripening Method Cervical Ripening Method: positive: Balloon device, Misoprostil - Presentation Presentation: positive: Vertex, LOP - left occiput posterior - Nuchal Cord Nuchal Cord: positive: None - Amniotic Fluid Description Amniotic Fluid Description: positive: Clear - Vacuum Use Indication for Vacuum Use: positive: Suspicion of immediate or potential compromise Type of Vacuum Cup: positive: Cup: Mushroom Type, Cup: Rigid - Episiotomy Type Episiotomy Type: positive: None - Laceration Laceration: positive: 1st degree - Suture Suture Type: positive: Vicryl Suture Size: positive: 2-0 - Delivery Outcome Delivery Outcome: positive: Livebirth - Totz Totz: positive: Placed in direct skin contact with mother, Stimulated, Warmed, [place] used sex: positive: Male - Cord Cord: positive: 3 vessels - Placenta Placenta: positive: Intact, Spontaneous - Estimated Blood Loss Estimated Blood Loss (in cc): 200 - Post Delivery Events Post Delivery Events: positive: No post delivery events - Delivery Comments (Free Text/Narrative) Delivery Comments (Free Text/Narrative): Patient induced for oligohydramnios over the past 3d. Received misoprostol then pitocin then misoprostol + cervical balloon then pitocin again. Finally started to dilate well after AROM clear. Patient became complete and pushed for almost 3 hours. Good expulsive effort as recorded by IUPC but descent was slow in part due to OP presentation. Baby was also asynclytic. During pushing we did multiple position changes. When the baby was just inside of the hymen she was not able to be traced well externally and so a FSE was applied with pt's consent. FHT's were in the 170-180s--baby had been having accelerations to that HR during the labor. But the variability had changed with a pseudosinusoidal pattern sometimes. At this point she began making quicker descent and delivery was close. patient was counseled that she may require vacuum assistance if the tracing continued to be abnormal. discussed risks of bruising and bleeding with possible intracranial or retinal hemorrhage. FHT then dropped to 90s and vacuum applied. Lots of caput present. Vacuum brought to green zone and immediately slipped off within a second with a slight amount of traction. The pt was actively expelling the baby at that point. Delivered spontaneously.
[2021-02-03] MEDS: ACETAMINOPHEN 325 MG TABLET PO PRN (16:42)
[2021-02-03] MEDS: IBUPROFEN 600 MG TABLET PO SCH (16:42)
[2021-02-03] MEDS ORDERED: LABETALOL 100 MG TABLET PO PRN (17:19)
[2021-02-04] MEDS: IBUPROFEN 600 MG TABLET PO SCH ×4 (01:44→22:34)
[2021-02-04] MEDS: ACETAMINOPHEN 325 MG TABLET PO PRN ×4 (01:45→22:35)
[2021-02-04] MEDS: DOCUSATE SODIUM 100 MG CAPSULE PO SCH ×3 (01:45→22:35)
[2021-02-05] MEDS: ACETAMINOPHEN 325 MG TABLET PO PRN ×3 (04:23→18:28)
[2021-02-05] MEDS: IBUPROFEN 600 MG TABLET PO SCH ×3 (04:24→18:29)
--- NOTE | 2021-02-05 08:26 | Discharge Plan ---
Discharge Plan Problem Reviewed?: Yes Disposition: Home, Self Care Condition: Good Prescriptions: Docusate Sodium 100Mg Capsule [Colace 100Mg Capsule] 100 mg PO BID PRN #30 cap PRN Reason: to soften stool Ibuprofen [Motrin] 600 mg PO Q6H PRN #30 tab PRN Reason: Pain Diet: Regular Activity Restrictions: see RN instructions Shower Restrictions: No Driving Restrictions: No No Smoking: If you smoke, Please STOP! Call for help. Follow-up with: Indu Araujo MD [Provider Admit Priv/Credential] - 1 Week (1w and 6w PP visits)
[2021-02-05] MEDS: DOCUSATE SODIUM 100 MG CAPSULE PO SCH (12:13)
[2021-02-05 17:00] VITALS: BP 128/75
--- NOTE | 2021-02-05 18:38 | Labor Flowsheet ---
Labor Flowsheet Datetime Report Generated by CPN: 02/05/2021 18:38 Datetime: 02/05/2021 16:57 VITAL SIGNS NBP Sys/Spring/Mean (mmHg): 128 : 75 : 86 Pulse: 90 Datetime: 02/04/2021 06:24 SpO2 (%): 88 Datetime: 02/03/2021 16:31 Respirations: 19 Temperature (C): 37.1 Datetime: 02/03/2021 15:18 Medication Comments: Pitocin @ 999mL/hr Datetime: 02/03/2021 15:12 Stage of : Recovery UTERINE ACTIVITY Monitor Mode: External Frequency (min): 1.5-3 Quality: Strong Duration (sec): 80-120 Pattern: Normal: <= 5 Contractions in 10 Minutes ASSESSMENT A Monitor Mode: Internal Scalp Electrode Comments: Unable to establish a baseline Oxygen Method: Room Air Datetime: 02/03/2021 15:11 Vacuum: On; Off; Pop Off Datetime: 02/03/2021 15:09 LaborFlag: Labor Datetime: 02/03/2021 15:00 FHR Baseline Rate : 160 FHR Baseline Changes: Tachycardia Variability: Moderate 6-25 bpm Accelerations: None Decelerations: None Category: Category II Datetime: 02/03/2021 14:56 MEDICATIONS Pitocin (milliunits): Discontinued I/O Interventions: Kenny Discontinued Datetime: 02/03/2021 14:51 Contraction Comments: IUPC zero'd Datetime: 02/03/2021 14:48 Anesthesia Comments: Minimal numbness in legs Datetime: 02/03/2021 14:44 Monitor Interventions for FHR: FSE Applied Datetime: 02/03/2021 14:34 Epidural Procedure Other: Redose COMMUNICATION Communication: Provider at Bedside Datetime: 02/03/2021 14:15 Resting Tone (Palpate): Relaxed Pushing Progress: Descent with Pushing; Pushing Effectively with Contractions Datetime: 02/03/2021 14:04 PATIENT CARE IV/Blood Work: New IV Bag Hung Datetime: 02/03/2021 13:48 Patient Care Comments: Bedside ultrasound used to confirm position as LOP Datetime: 02/03/2021 11:55 STAGE 2 Pushing: Coached on Pushing; Urge to Push Pushing Position: Pushing with Contractions Datetime: 02/03/2021 11:45 [place] Units (mmHg): 130 Datetime: 02/03/2021 11:42 VAGINAL EXAM Dilatation (cm): 10.0 Effacement (%): 100 Station: 0 Exam by: Dr. Packer Datetime: 02/03/2021 11:39 Communication Comments: Dr. Packer at bedside; nurse to restart Pitocin if contractions begin to space out Datetime: 02/03/2021 11:00 PAIN Pain Scale: 3 Pain Presence: Intermittent Pain Type: Cramping Pain Location: Abdomen Anesthesia Level Check: T11 Datetime: 02/03/2021 10:30 Resting Tone IUP (mmHg): 35 Intensity IUP (mmHg): 20-45 Datetime: 02/03/2021 09:45 Actions for Decelerations: Provider Notified Datetime: 02/03/2021 09:35 Patient Position/Activity: Left Lateral; Semi-Fowlers Datetime: 02/03/2021 07:53 Monitor Interventions for UA: IUPC Inserted Datetime: 02/03/2021 07:52 Membrane Status: Ruptured Membranes Rupture Method: Artificial Amniotic Fluid Color: Clear Amniotic Fluid Amount: Scant Datetime: 02/03/2021 07:47 Provider Reviewed Strip: Yes Provider Notified (Name): Ochoa Datetime: 02/03/2021 07:01 Pain Goal: 3 Pain Coping: Breathing Through Contractions; Requesting Pain Medication or Epidural Datetime: 02/03/2021 07:00 Notification Reason: Status Update; Labor Status; Pain Datetime: 02/03/2021 06:36 Vaginal Bleeding: Normal Show Cervix, Consistency: Soft Cervix, Position: Anterior Datetime: 02/03/2021 06:30 Pitocin Checklist: At Least 1 Acceleration of 15 bpm x 15 Seconds in 30 Minutes or Adequate Variabi lity; No More than 1 Late Deceleration Occurred in Past 30 Minutes; No More than 2 Variable Decelerat ions > 60 Seconds in Duration and decreasing >60 bpm in 30 minutes; No More than 5 Uterine Contractio ns in 10 Minutes for any 20 Minute Interval; Uterus Palpates Soft between Contractions Datetime: 02/03/2021 06:00 Pain Relief Measures: Epidural Given; Comfort Measures Pain Assessment Comments: Pt repositioned to high parada's to aid absorption of epidural infusion t o her lower back Datetime: 02/03/2021 04:00 Vital Sign Comments: Datetime: 02/03/2021 03:08 Presentation 'A': Cephalic Datetime: 02/03/2021 03:00 Temperature Route: Oral Datetime: 02/03/2021 01:30 ANESTHESIA Anesthesia Plans: Epidural Datetime: 02/03/2021 00:15 Vaginal Exam Comments: Cook catheter removed easily; no discomfort with epidural. VE deferred Datetime: 02/02/2021 23:03 Cervical Ripening Agents: Cytotec @ 50mcg BC Datetime: 02/02/2021 19:30 MATERNAL ASSESSMENT Level of Consciousness: Alert DTR's/Clonus: DTRs 1+ Headache: Denies Breath Sounds, Left: Clear and Equal Breath Sounds, Right: Clear and Equal Nausea/Vomiting: Denies RUQ Epigastric Pain: Denies Maternal Comments: Has epidural, needs assistance with position changes Comfort Measures: Family Support TEACHING Instructional Method: Verbal; Patient Instructed; Family/Support Person Instructed Plan of Care: Plan of Care Discussed; Induction Unit Routine: Unit Personnel; Safety/Fall Risk Prevention; Diet/Nutrition Services; Medications Labor/Induction: Cervical Ripening; Induction Pain Management: Epidural Medications: Cervical Ripening Related: Maternal Physical Changes; Maternal Emotional Changes Datetime: 02/02/2021 16:05 Epidural Positioning: Side Lying Datetime: 02/02/2021 16:01 Epidural Procedure: Test Dose Datetime: 02/02/2021 14:38 Analgesics/Sedatives: Fentanyl (mcg) @ 100 Datetime: 02/01/2021 13:15 Hygiene: Shower; Gown Changed Datetime: 02/01/2021 11:50 Teaching Comments: Patient agreed to new plan of care
--- NOTE | 2021-02-10 17:38 | DISCHARGE SUMMARY ---
Physician: Marilee Packer MD DATE OF ADMISSION: 02/01/2021 DATE OF DISCHARGE: 02/05/2021 ADMISSION DIAGNOSES 1. Intrauterine at 36 weeks 3 days. 2. Oligohydramnios. 3. Chronic hypertension. DISCHARGE DIAGNOSES: Status post spontaneous vaginal delivery. PROCEDURE: On 02/03/2021, spontaneous vaginal delivery of a liveborn male. A vacuum had been placed, but the patient was not delivered with vacuum assistance and so this was a spontaneous delivery. HOSPITAL COURSE: The patient was admitted for her induction, which was prolonged. She required multiple doses of misoprostol, she received a cervical ripening catheter, she received Pitocin and an artificial rupture of membranes. She received an epidural for pain control. Eventually she had a spontaneous vaginal delivery. Her fetus tolerated the oligohydramnios well. The etiology of her oligohydramnios is unknown, but the patient does have preexisting chronic hypertension. During her hospitalization, she had normal preeclampsia labs and a normal protein to creatinine ratio. She was never symptomatic with preeclampsia symptoms. Her blood pressures remained in the normal to mild range. By day #2, she was requesting discharge home. The baby needed to room in due to feeding issues. She was committed to and receiving a lot of assistance. Otherwise she was not having any problems. She was eating, ambulating, urinating without problems. Her mood was good and there were no problems with pain control. PHYSICAL EXAM VITAL SIGNS: Afebrile with normal vital signs. GENERAL: Alert and smiling, in no apparent distress. ABDOMEN: Soft, nontender, nondistended. Fundus firm, nontender, and 1 cm below the umbilicus. EXTREMITIES: There was trace lower extremity edema bilaterally. DISCHARGE DISPOSITION: Home. CONDITION: Good. FOLLOWUP: In 1 week at [facility] for blood pressure and mood check. PRECAUTIONS: Routine precautions given. TD: 02/10/2021 17:37 [facility]
== END 2021-02-05 18:30 | disposition home or self-care (01) | DRG 806 ==
LOC: WFO 09:48 → FBP 09:49 → WFO 11:17 → FBP 11:18 → OBSVTOIN 02-01 11:39
PROVIDERS: ADMIT Obstetrics & Gynecology; ATTEND Obstetrics & Gynecology
PROC: 0U7C7ZZ Dilation of Cervix, Via Natural or Artificial Opening (ICD-10-PCS; 2021-02-02)
PROC: 10907ZC Drainage of Amniotic Fluid, Therapeutic from Products of Conception, Via Natural or Artificial Opening (ICD-10-PCS; principal; 2021-02-03)
PROC: 10E0XZZ Delivery of Products of Conception, External Approach (ICD-10-PCS; 2021-02-03)
PROC: 0HQ9XZZ Repair Perineum Skin, External Approach (ICD-10-PCS; 2021-02-03)
DX: O41.03X0 Oligohydramnios, third trimester, not applicable or unspecified (principal); O10.92 Unspecified pre-existing hypertension complicating childbirth; Z37.0 Single live birth; Z3A.36 36 weeks gestation of pregnancy; O99.214 Obesity complicating childbirth; E66.01 Morbid (severe) obesity due to excess calories; O62.4 Hypertonic, incoordinate, and prolonged uterine contractions
CPT/HCPCS: 59025; 76815; 80053; 82570; 84156; 85025; 86850; 86900; 86901; A9270; J7120

== ENCOUNTER 2021-07-24 19:20 | Emergency (ER) | payer OTHER ==
--- NOTE | 2021-07-24 19:47 | ED Physician Documentation ---
History of Present Illness - Stated complaint Stated Complaint: JOHN/HEADACHE/FEVER/CHILLS - History obtained from History obtained from: Patient - Additonal information Additional information: 25-year-old otherwise healthy female presents with cough, congestion, and low- grade fever that started this afternoon. She is not having any ear pain, sore throat, chest pain or dyspnea. He has no GI symptoms and is tolerating p.o. well. She is vaccinated for Covid, she completed both maternal vaccines again March. She is concerned however because she flew yesterday across the country from [place] to [place] and she has a 6-month-old child at home. She would like to be tested for Covid. She is not attempted any medication for this issue. Review of Systems Ten Systems: 10 systems reviewed and negative Constitutional: reports: Fever Nose: reports: Rhinorrhea / runny nose, Congestion Cardiac: reports: Reviewed and negative Respiratory: reports: Cough. denies: Dyspnea, Hemoptysis, Wheezing GI: reports: Reviewed and negative PD PAST MEDICAL HISTORY - Past Medical History Cardiovascular: Hypertension (chronic, rx labetalol) Respiratory: None Neuro: None Endocrine/Autoimmune: None : None - Present Medications Home Medications: Ambulatory Orders Medication Instructions Recorded Confirmed Docusate Sodium 100Mg Capsule 100 mg PO BID PRN #30 cap 02/05/21 [Colace 100Mg Capsule] Ibuprofen [Motrin] 600 mg PO Q6H PRN #30 tab 02/05/21 - Allergies Allergies/Adverse Reactions: Allergies Allergy/AdvReac Type Severity Reaction Status Date / Time No Known Drug Allergies Allergy Verified 01/14/21 09:56 - Social History Smoking Status: Never smoker PD ED PE NORMAL - Vitals Vital signs reviewed: Yes - General General: Alert and oriented X 3, No acute distress, Well developed/nourished - HEENT HEENT: Atraumatic, PERRL, Ears normal, Moist mucous membranes, Pharynx benign, Dentition benign - Neck Neck: Supple, no meningeal sign, No adenopathy, No JVD - Cardiac Cardiac: RRR, No murmur, No gallop, No rub - Respiratory Respiratory: No respiratory distress, Clear bilaterally - Abdomen Abdomen: Normal bowel sounds, Soft, Non tender, Non distended, No organomegaly - Derm Derm: Normal color, Warm and dry, No rash - Neuro Neuro: Alert and oriented X 3 Eye Opening: Spontaneous Motor: Obeys Commands Verbal: Oriented GCS Score: 15 - Psych Psych: Normal mood, Normal affect PD MEDICAL DECISION MAKING - ED course Complexity details: considered differential, d/w patient ED course: 25-year-old female who presents with viral URI type symptoms. Covid test at patient's request. She was advised to continue supportive measures including ibuprofen, Tylenol, oral fluids, rest, [id number] cough medicine as needed. I reviewed return precautions in detail with the patient and advised her to stay home and self isolate until her Covid test is resulted. Departure - Departure Disposition: Home, Self Care Condition: Good Instructions: ED Viral Syndrome Comments: You presented with symptoms of a viral respiratory infection. Your physical exam is reassuring, you are not requiring supplemental oxygen and there is no indication for chest x-ray or additional imaging today. We will obtain a Covid test. Thank you for being vaccinated! Get plenty of rest tonight, drink lots of fluids, you may take Tylenol or ibuprofen and [id number] cough cold medication if desired. Antibiotics are not indicated for viral symptoms. If you have new or worsening symptoms return to the ER.
[2021-07-24 19:55] VITALS: BP 153/93
== END 2021-07-24 20:00 | disposition home or self-care (01) ==
LOC: ED 19:20
DX: R05 Cough (principal); R50.9 Fever, unspecified; J34.89 Other specified disorders of nose and nasal sinuses; Z20.822 Contact with and (suspected) exposure to COVID-19
CPT/HCPCS: 99282; 99283

== ENCOUNTER 2021-10-19 19:52 | Emergency (ER) | payer OTHER ==
[2021-10-19] MEDS ORDERED: PROCHLORPERAZINE 10 MG/2 ML VIAL IVP STA (20:08)
[2021-10-19] MEDS ORDERED: diphenhydrAMINE INJ 50 MG/ML VIAL IVP STA (20:08)
[2021-10-19] MEDS ORDERED: SODIUM CHLORIDE 0.9% 1,000 ML IV STA (20:08)
--- NOTE | 2021-10-19 20:18 | ED Physician Documentation ---
History of Present Illness - Stated complaint Stated Complaint: FEVER,NAUSEA,MIGRAINE - Chief complaint Chief Complaint: Heent - Additonal information Additional information: 26-year-old female who denies any pertinent past medical history presents to the emergency department for evaluation of a fever that began earlier this afternoon up to 101.5 as well as headache and some nausea. Denies possibility of she is currently on her menstrual cycle. She did take some Tylenol and has begun to feel better but now she is diaphoretic. She is denying any abdominal pain, no dysuria urgency or frequency. She is denying chest pain or shortness of air. Her older child was sick last week with a fever and was taken to the doctors. They thought he likely had a viral illness. Patient is fully vaccinated for COVID-19. Review of Systems Constitutional: reports: Fever, Chills Ears: reports: Reviewed and negative Nose: reports: Reviewed and negative Throat: reports: Reviewed and negative Cardiac: denies: Chest pain / pressure, Palpitations, Pedal edema, Calf pain Respiratory: denies: Dyspnea, Cough, Hemoptysis, Wheezing GI: reports: Nausea. denies: Abdominal Pain, Vomiting, Constipation, Diarrhea : denies: Frequency, Hesitancy Skin: denies: Rash Musculoskeletal: reports: Reviewed and negative Neurologic: reports: Headache. denies: Seizure, Confused, Head injury PD PAST MEDICAL HISTORY - Past Medical History Past Medical History: Yes Cardiovascular: Hypertension Respiratory: None Neuro: Headaches Endocrine/Autoimmune: None GI: None ICE CREAM MIXER: None : None HEENT: None Psych: None Musculoskeletal: None Derm: None - Past Surgical History Past Surgical History: No - Present Medications Home Medications: Ambulatory Orders Medication Instructions Recorded Confirmed No Known Home Medications 07/24/21 07/24/21 - Allergies Allergies/Adverse Reactions: Allergies Allergy/AdvReac Type Severity Reaction Status Date / Time No Known Drug Allergies Allergy Verified 10/19/21 20:07 - Social History Does the pt smoke?: No Smoking Status: Never smoker Does the pt drink ETOH?: No Does the pt have substance abuse?: No - Immunizations Immunizations are current?: Yes - POLST Patient has POLST: No PD ED PE NORMAL - General General: Alert and oriented X 3, No acute distress, Well developed/nourished - HEENT HEENT: Atraumatic, Ears normal, Moist mucous membranes, Pharynx benign - Neck Neck: Supple, no meningeal sign, No adenopathy, Other (No meningeal signs) - Cardiac Cardiac: RRR (Tachycardia), No murmur, No gallop, No rub - Respiratory Respiratory: No respiratory distress, Clear bilaterally - Abdomen Abdomen: Normal bowel sounds, Soft, Non tender - Back Back: No CVA TTP, No spinal TTP Results - Vitals Vitals: Vital Signs - 24 hr 10/19/21 10/19/21 20:05 21:18 Temperature 36.9 C Heart Rate 120 H 105 H Respiratory 17 17 Rate Blood Pressure 139/77 H 141/73 H O2 Saturation 95 96 Oxygen O2 Source Room air - Labs Labs: Laboratory Tests 10/19/21 10/19/21 20:18 20:24 Sodium 134 L Potassium 3.6 Chloride 100 L Carbon Dioxide 22 Anion Gap 12.0 BUN 12 Creatinine 0.8 Estimated GFR (MDRD) 87 L Glucose 111 H Calcium 8.8 Total Bilirubin 0.7 AST 17 ALT 17 Alkaline Phosphatase 63 Total Protein 7.9 Albumin 4.1 Globulin 3.8 Albumin/Globulin Ratio 1.1 Lipase 21 L Urine Color YELLOW Urine Clarity HAZY Urine pH 5.5 Ur Specific [place] >=1.030 H Urine Protein NEGATIVE Urine Glucose (UA) NEGATIVE Urine Ketones NEGATIVE Urine Occult Blood LARGE H Urine Nitrite NEGATIVE Urine Bilirubin NEGATIVE Urine Urobilinogen 0.2 (NORMAL) Ur Leukocyte Esterase NEGATIVE Urine RBC 6-10 H Urine WBC 4-5 Ur Squamous Epith Cells MANY Squamous H Urine Bacteria Few Urine Mucus Few Strands Ur Microscopic Review INDICATED Urine Culture Comments NOT INDICATED Urine HCG, Qual NEGATIVE - Rads (name of study) chest xr Radiology: Final report received (No acute cardiopulmonary process) PD MEDICAL DECISION MAKING - ED course Complexity details: reviewed results, re-evaluated patient, considered differential, d/w patient ED course: 26-year-old female who denies any pertinent past medical history presents emergency department for evaluation of acute onset fevers and headache that began this afternoon. Her son was sick with likely a viral upper respiratory infection last week. She had taken some Tylenol prior to arrival and was afebrile here though she was mildly diaphoretic. She reported that her headache had begun to resolve on its own. It was not sudden onset nor worst of life. Cardiopulmonary auscultation is unremarkable sparing some tachycardia. Her abdominal exam is benign with no tenderness elicited. Urine showed no signs of infection, though she was on her menstrual cycle. Chest x-ray without acute findings. She had no meningeal signs. Patient was given a liter of fluids as well as Benadryl and Zofran with good resolution of her headache. Heart rate had improved by the time of disposition. Emergent return precautions were discussed for worsening symptoms Departure - Departure Disposition: 01 Home, Self Care Clinical Impression: Fever Headache Qualifiers: Headache type: unspecified Headache chronicity pattern: acute headache Intractability: not intractable Qualified Code(s): R51.9 - Headache, unspecified Condition: Stable Record reviewed to determine appropriate education?: Yes Comments: Lyla roland are seen today in the emergency department for headache and fever. Your neurological exam is normal. You do not have signs of meningitis or infection on the brain. We did give you some IV fluids as well as Compazine and Benadryl and the headache has gone away. I do suspect they have a virus causing the headache and fever at home. Likely the same 1 that made her son sick last week. Please take Tylenol or ibuprofen for any discomfort. If at any point you develop chest pain, have sudden severe abdominal pain, uncontrolled vomiting or diarrhea then please return immediately to the ER for second evaluation. You have a Covid test pending. You need to self quarantine until the result is done and negative. Do not leave your house. Do not get near anybody. The results should be done in 48 to 72 hours. We will call with a positive result, the fastest way to get a negative result for confirmation though is to go to the hospital website at [email or web address], click on the my [facility] tab and sign up for the patient portal. If any friends or family get sick and would like to have a Covid test done, but do not have signs or symptoms that would necessitate being hospitalized, there are multiple local options for Covid testing. [facility] keeps an updated list of testing and vaccination options [email or web address] [email or web address]
[2021-10-19 20:38] LABS: BILIRUBIN,URINE NEGATIVE (NEGATIVE); GLUCOSE, URINE (UA) NEGATIVE (NEGATIVE); KETONES,URINE (UA) NEGATIVE (NEGATIVE); LEUKOCYTE ESTERASE, URINE NEGATIVE (NEGATIVE); NITRITE,URINE NEGATIVE (NEGATIVE); OCCULT BLOOD,URINE LARGE (NEGATIVE); PH,URINE 5.5 PH (5.0-7.5); PROTEIN,URINE NEGATIVE (NEGATIVE); UROBILINOGEN,URINE 0.2 (NORMAL) E.U./dL (NORMAL)
[2021-10-19 20:51] LABS: ALBUMIN 4.1 g/dL (3.2-5.5); ALBUMIN/GLOBULIN RATIO 1.1 (1.0-2.2); BILIRUBIN,TOTAL 0.7 mg/dL (0.2-1.0); CALCIUM 8.8 mg/dL (8.5-10.3); CREATININE 0.8 mg/dL (0.4-1.0); POTASSIUM 3.6 mmol/L (3.5-5.0); TOTAL PROTEIN 7.9 g/dL (6.7-8.2)
--- NOTE | 2021-10-19 20:55 | XRAY Report ---
PROCEDURE: Chest 1 View X-Ray INDICATIONS: fever TECHNIQUE: One view of the chest was acquired. COMPARISON: None. FINDINGS: Surgical changes and devices: None. Lungs and pleura: The lung apices are partially obscured medially by patient's neck soft tissues. No pleural effusions or pneumothorax. Visualized lungs are clear. Mediastinum: Mediastinal contours appear normal. Heart size is normal. Bones and chest wall: No suspicious bony lesions. Overlying soft tissues appear unremarkable. IMPRESSION: 1. No acute cardiopulmonary disease. Reviewed by: Freddy Sherwood MD on 10/19/2021 8:54 PM [facility] Approved by: Freddy Sherwood MD on 10/19/2021 8:54 PM [facility] Station ID: [id number]
[2021-10-19 20:56] LABS: BACTERIA,URINE Few /HPF (None Seen); CLARITY,URINE HAZY (CLEAR); HCG UR QUAL NEGATIVE; MUCUS,URINE Few Strands; SQUAMOUS EPITHELIAL CELL,UR MANY Squamous (<= Few)
[2021-10-19 21:35] VITALS: BP 145/77
== END 2021-10-19 21:48 | disposition home or self-care (01) ==
LOC: ED 19:52
DX: U07.1 COVID-19 (principal); I10 Essential (primary) hypertension
CPT/HCPCS: 36415; 71045; 80053; 81001; 81025; 83690; 87635; 96374; 96375; 99282; 99284; J1200; 81003; 87086

== ENCOUNTER 2022-03-23 14:42 | Outpatient (CLI) | payer OTHER ==
--- NOTE | 2022-03-23 16:32 | Ultrasound Report ---
PROCEDURE: OB Detailed Eval INDICATIONS: SUPERVISION OF OUTSIDE/PRIOR DATING DATA: Last menstrual period (LMP): 10/17/2021. LMP-based estimated date of delivery (LOAN): 07/24/2022. First dating scan (date and location): 12/13/2021. Estimated date of delivery (LOAN) from first dating scan: 07/25/2022. The below data below was generated using the ultrasound LOAN of 07/25/2022 TECHNIQUE: Real-time scanning was performed of the fetus, with image documentation and biometric measurements. COMPARISON: OB ultrasound 12/13/2021 FINDINGS: General: A single living intrauterine gestation is present. Presentation: First Placenta: Placental position is and, without previa. Amniotic fluid index: 14.1 cm, within normal limits for gestational age. Largest pocket 4.1 cm heart rate: 140 beats per minute. Maternal cervical canal: 4 cm long; normal length is 2.5 cm or more. biometrics: Biparietal diameter: 5.2 cm 21 weeks 5 days Head circumference: 20.0 cm 22 weeks 1 day Abdominal circumference: 17.9 cm 22 weeks 5 days Femur length: 3.8 cm 22 weeks 0 days Estimated gestational age from initial scan: 22 weeks 2 days Composite gestational age from present scan: 22 weeks 1 day Estimated weight and percentile: 490 g 47th percentile Measurement variability in biometric dating: +/- 10 days from 12-20 weeks gestation, +/- 2 weeks from 20-30 weeks gestation, +/- 3 weeks at 30 weeks gestation or later. Anatomic survey: Neuro: Ventricles are normal at less than 10 mm. Cisterna magna is normal at 3-11 mm. Cerebellum i s normal in size and morphology. Nuchal skin fold: Normal at less than 6 mm between 14 and 20 weeks gestational age. Face: Nose and lips, facial profile are normal. Spine: No evidence for spina bifida. Heart: 4-chambered heart is present, with normal ventricular outflow tracts. Diaphragm: Diaphragm is intact. Stomach: Left-sided stomach is present. Kidneys: No hydronephrosis. Normal is less than 5 mm in 2nd trimester, less than 7 mm in 3rd trimester. Cord: 3 vessel cord has orthotopic insertion. Bladder: Normal in size. Extremities: All 4 extremities are visualized. IMPRESSION: Single live intrauterine with ultrasound gestational age today of 22 weeks 1 day. Anatomy is within normal limits. Reviewed by: Vicky Culver MD on 03/23/2022 4:30 PM PDT Approved by: Vicky Culver MD on 03/23/2022 4:30 PM PDT Station ID: [id number]
== END 2022-03-23 14:43 | disposition home or self-care (01) ==
LOC: DI 14:42
PROVIDERS: ATTEND Nurse Practitioner Obstetrics & Gynecology
DX: Z34.02 Encounter for supervision of normal first pregnancy, second trimester (principal); Z3A.22 22 weeks gestation of pregnancy; Z36.89 Encounter for other specified antenatal screening